=== PATIENT | female | born 1990 | race American Indian/Alaskan Native ===

== ENCOUNTER 2017-01-13 18:22 | Emergency (ER) | payer MEDICAID ==
[2017-01-13 18:33] VITALS: BP 115/65; PULSE 102; RESP 18; TEMP 98; O2SAT 98
--- NOTE | 2017-01-13 18:56 | ED PDOC ---
HPI: Abdomen Time Seen by Provider: 01/13/17 18:39 Chief Complaint (Nursing): Abdominal Pain Chief Complaint (Provider): Abdominal pain History Per: Patient Additional Complaint(s): Patient is 26 yo female, PMH of HIV and Bipolar disorder, presents to ED with complaints of having increasing RLQ pain over 4 days. Denies N/V/D. No fever or chills. Normal BM's. Past Medical History Reviewed: Nursing Documentation, Vital Signs Vital Signs: Last Vital Signs Temp 98 F 01/13/17 18:30 Pulse 102 H 01/13/17 18:30 Resp 18 01/13/17 18:30 BP 115/65 01/13/17 18:30 Pulse Ox 98 01/13/17 18:30 - Medical History PMH: Asthma, Bipolar Disorder, Depression, HIV - Surgical History Surgical History: No Surg Hx - Family History Family History: States: Unknown Family Hx - Living Arrangements Living Arrangements: With Family - Social History Current smoker - smoking cessation education provided: No - Home Medications Home Medications: Ambulatory Orders Medication Instructions Recorded Sulfamethoxazole/Trimethopri 2 tab PO BID #28 tab 10/05/14 [Bactrim Ds 800 mg-160 mg] Valacyclovir Hydrochloride 1 gm PO TID #21 tab 02/08/15 [Valtrex] oxyCODONE/Acetaminophen [Percocet 1 ea PO Q6 PRN #30 tab 02/19/15 5/325 mg Tab] Emtricita/rilpivir/tenofovir 1 tab PO DAILY 03/16/15 [Complera 200 MG-25 MG-300 MG] Fluconazole [Diflucan] 150 mg PO ONCE #1 tab 09/13/15 Nystatin 60 gm TP DAILY #60 gm 09/13/15 Albuterol HFA [Ventolin HFA 90 2 puff IH Q4 PRN #1 inh 10/04/15 mcg/actuation (8 g)] Prednisone 60 mg PO DAILY 4 Days 10/04/15 traMADol [Ultram] 50 mg PO Q6H PRN #15 tab 10/25/15 - Allergies Allergies/Adverse Reactions: Allergies Allergy/AdvReac Type Severity Reaction Status Date / Time chocolate flavor Allergy ANAPHYLAXIS Verified 10/25/15 10:46 ibuprofen Allergy VOMITING Verified 10/25/15 10:46 Review of Systems ROS Statement: Except As Marked, All Systems Reviewed And Found Negative Gastrointestinal: Positive for: Abdominal Pain Physical Exam - Reviewed Nursing Documentation Reviewed: Yes Vital Signs Reviewed: Yes - Physical Exam Appears: Positive for: Well, Non-toxic, No Acute Distress Head Exam: Positive for: ATRAUMATIC, NORMAL INSPECTION, NORMOCEPHALIC Skin: Positive for: Normal Color, Warm, DRY Eye Exam: Positive for: EOMI, Normal appearance, PERRL ENT: Positive for: Normal ENT Inspection Neck: Positive for: Normal, Painless ROM Cardiovascular/Chest: Positive for: Regular Rate, Rhythm Respiratory: Positive for: CNT, Normal Breath Sounds Gastrointestinal/Abdominal: Positive for: Bowel Sounds, Soft, Tenderness (RLQ tenderness). Negative for: Distended, Guarding Back: Positive for: Normal Inspection Extremity: Positive for: Normal ROM Neurologic/Psych: Positive for: Alert, Oriented - ECG O2 Sat by Pulse Oximetry: 98 Medical Decision Making Medical Decision Making: IV access established and treatment initiated with IVF, Toradol Case endorsed to ALAN Hoang at 20:00 pending diagnostic review and re-eval Disposition - Clinical Impression Clinical Impression: Abdominal pain - Patient ED Disposition Is Patient to be Admitted: [facility] - Disposition Disposition: [facility]) Disposition Time: 20:00 Condition: STABLE - POA Present On Arrival: None
[2017-01-13] MEDS ORDERED: Iohexol 240 (50 ml) PO ONE (19:00)
[2017-01-13 19:40] LABS: SQUAMOUS EPITHIAL 1 /hpf (0-5); URINE BACTERIA RARE (<OCC); URINE BILIRUBIN NEGATIVE (NEGATIVE); URINE BLOOD NEGATIVE (NEGATIVE); URINE CLARITY SLIGHTY-CLOUDY (Clear); URINE COLOR AMBER (YELLOW); URINE GLUCOSE (UA) NEG (Normal); URINE LEUKOCYTE ESTERASE MOD Leu/uL (Negative); URINE NITRATE NEGATIVE (NEGATIVE); URINE PROTEIN 30 mg/dL (NEGATIVE); URINE UROBILINOGEN 0.2-1.0 mg/dL (0.2-1.0)
[2017-01-13 19:43] LABS: ALB/GLOB RATIO 0.9 (1.0-2.1); ALBUMIN 4.2 g/dL (3.5-5.0); ALT/SGPT 41 U/L (9-52); AMYLASE 64 U/L (30-110); AST/SGOT 29 U/L (14-36); BLOOD UREA NITROGEN 7 mg/dl (7-17); CALCIUM 9.5 mg/dL (8.4-10.2); GFR AFRICAN-AMERICAN > 60; GFR NON-AFRICAN AMERICAN > 60; LIPASE 41 U/L (23-300)
[2017-01-13 19:44] LABS: BASO % 0.5 % (0.0-2.0); EOS # 0.1 K/uL (0.0-0.7); EOS % 1.1 % (0.0-4.0); HEMOGLOBIN 12.8 g/dL (12.0-16.0); LYMPH # 2.8 K/uL (1.0-4.3); LYMPH % 41.2 % (20.0-40.0); MEAN CELL VOLUME 82.1 fl (81.0-99.0); MEAN CORPUSCULAR HGB CONC 32.9 g/dL (33.0-37.0); MEAN PLATELET VOLUME 8.9 fl (7.2-11.7); MONO # 0.7 K/uL (0.0-0.8); NEUT # 3.2 K/uL (1.8-7.0); NEUT % 46.2 % (50.0-75.0); NRBC % 0.1 % (0.0-0.0); RBC 4.75 Mil/uL (3.80-5.20); RED CELL DISTRIBUTION WIDTH 13.8 % (11.5-14.5); WHITE BLOOD COUNT 6.8 K/uL (4.8-10.8)
[2017-01-13] MEDS ORDERED: Iohexol 240 (50 ml) ONE (19:54)
--- NOTE | 2017-01-13 20:33 | ED PDOC ---
- Laboratory Results Result Diagrams: 01/13/17 19:29 01/13/17 19:29 - ECG O2 Sat by Pulse Oximetry: 98 - Progress ED Course And Treament: Case endorsed to selling underwriter from Jenna PHILLIPS pending CT EXAM: CT Abdomen and Pelvis With Intravenous Contrast CLINICAL HISTORY: 26 years old, female; Pain; Abdominal pain; Localized; Right lower quadrant (rlq ); Additional info: Rlq pain, R/O appy. Sent phy. Doc. With request TECHNIQUE: Axial computed tomography images of the abdomen and pelvis with intravenous contrast. This CT exam was performed using one or more of the following dose reduction techniques : automated exposure control, adjustment of the mA and/or kV according to patient size, and/ or use of iterative reconstruction technique. Coronal and sagittal reformatted images were created and reviewed. CONTRAST: 100 mL of [id number] administered intravenously. COMPARISON: No relevant prior studies available. FINDINGS: Lower thorax: No acute findings. ABDOMEN: Liver: Unremarkable. No mass. Gallbladder and bile ducts: No calcified stones. No ductal dilation. Pancreas: No ductal dilation. No mass. Spleen: No splenomegaly. Adrenals: No mass. Kidneys and ureters: No mass. No hydronephrosis. Stomach and bowel: Segmental areas of underdistention of LEFT colon. No definite mural thickening. No obstruction. Appendix: Normal caliber. No inflammation. PELVIS: Bladder: Unremarkable. Reproductive: Several small ovarian follicles/cysts. ABDOMEN and PELVIS: Intraperitoneal space: Trace free fluid within pelvis. No free air. Bones/joints: No acute fracture. Soft tissues: Unremarkable. Vasculature: Unremarkable. No aneurysm. Lymph nodes: Several subcentimeter short axis lymph nodes within aortocaval, paraaortic, iliac regions. IMPRESSION: 1. No definite CT evidence of appendicitis. 2. Several small ovarian follicles/cysts. Consider ultrasound. 3. Incidental/non-acute findings are described above. Patient educated on findings, states she does not wish to stay for ultrasound; states she has Chief Of Production she will follow up with. Rx Macrobid provided for UTI. Return to ED for worsening/concerning symptoms. Disposition - Clinical Impression Clinical Impression: UTI (urinary tract infection), Ovarian cyst, Abdominal pain - POA Present On Arrival: None - Disposition Disposition: Routine/Home Disposition Time: 23:45 Condition: IMPROVED Additional Instructions: Follow up with Chief Of Production in 2-3 days. Take medication as directed. Take Tylenol as directed, as needed for pain. Return to ED for worsening/concerning symptoms. Prescriptions: Nitrofurantoin Macrocrystals [Macrobid] 100 mg PO BID #14 cap Instructions: Ovarian Cyst (ED), Urinary Tract Infection in Women (ED)
[2017-01-13] MEDS ORDERED: Sodium Chloride 0.9% 50 ML IV ONE (22:34)
[2017-01-13] MEDS ORDERED: Iohexol 300 100 ML IJ ONE (22:34)
--- NOTE | 2017-01-13 23:14 | CT ---
EXAM: CT Abdomen and Pelvis With Intravenous Contrast CLINICAL HISTORY: 26 years old, female; Pain; Abdominal pain; Localized; Right lower quadrant (rlq); Additional info: Rlq pain, R/O appy. Sent phy. Doc. With request TECHNIQUE: Axial computed tomography images of the abdomen and pelvis with intravenous contrast. This CT exam was performed using one or more of the following dose reduction techniques: automated exposure control, adjustment of the mA and/or kV according to patient size, and/or use of iterative reconstruction technique. Coronal and sagittal reformatted images were created and reviewed. CONTRAST: 100 mL of [id number] administered intravenously. COMPARISON: No relevant prior studies available. FINDINGS: Lower thorax: No acute findings. ABDOMEN: Liver: Unremarkable. No mass. Gallbladder and bile ducts: No calcified stones. No ductal dilation. Pancreas: No ductal dilation. No mass. Spleen: No splenomegaly. Adrenals: No mass. Kidneys and ureters: No mass. No hydronephrosis. Stomach and bowel: Segmental areas of underdistention of LEFT colon. No definite mural thickening. No obstruction. Appendix: Normal caliber. No inflammation. PELVIS: Bladder: Unremarkable. Reproductive: Several small ovarian follicles/cysts. ABDOMEN and PELVIS: Intraperitoneal space: Trace free fluid within pelvis. No free air. Bones/joints: No acute fracture. Soft tissues: Unremarkable. Vasculature: Unremarkable. No aneurysm. Lymph nodes: Several subcentimeter short axis lymph nodes within aortocaval, paraaortic, iliac regions. IMPRESSION: 1. No definite CT evidence of appendicitis. 2. Several small ovarian follicles/cysts. Consider ultrasound. 3. Incidental/non-acute findings are described above.
== END 2017-01-13 23:55 | disposition home or self-care (01) ==
LOC: H.ER 18:22
DX: N39.0 Urinary tract infection, site not specified (principal); N83.209 Unspecified ovarian cyst, unspecified side; B20 Human immunodeficiency virus [HIV] disease; F31.9 Bipolar disorder, unspecified

== ENCOUNTER 2017-03-10 08:20 | Emergency (ER) | payer MEDICAID ==
[2017-03-10 08:29] VITALS: BP 126/70; PULSE 75
[2017-03-10 08:30] VITALS: BMI 42.5
[2017-03-10 08:56] VITALS: RESP 18; TEMP 97; O2SAT 98
--- NOTE | 2017-03-10 09:30 | ED PDOC ---
Upper Extremity Pain/Injury Time Seen by Provider: 03/10/17 08:27 Chief Complaint (Provider): Skin infection History Per: Patient History/Exam Limitations: no limitations Onset/Duration Of Symptoms: Days (yesterday) Current Symptoms Are (Timing): Still Present Additional Complaint(s): Pt. states she had a small pimple on her right forearm so she popped yesterday. Today she woke up with redness and a bigger pimple on the forearm. Painful so she came to the ED. Has itchiness as well. No weakness, headaches, fever, chills, numbness, tingles. Able to move arm and forearm with no issues. Past Medical History Reviewed: Nursing Documentation, Vital Signs Vital Signs: Last Vital Signs Temp 97.0 F L 03/10/17 08:52 Pulse 75 03/10/17 08:52 Resp 18 03/10/17 08:52 BP 126/70 03/10/17 08:52 Pulse Ox 98 03/10/17 08:52 - Medical History PMH: Asthma, Bipolar Disorder, Depression, HIV Denies: Chronic Kidney Disease - Surgical History Surgical History: No Surg Hx - Family History Family History: States: Unknown Family Hx - Social History Alcohol: None Drugs: Denies - Immunization History Hx Tetanus Toxoid Vaccination: No Hx Influenza Vaccination: Yes Hx Pneumococcal Vaccination: No - Home Medications Home Medications: Ambulatory Orders Medication Instructions Recorded Sulfamethoxazole/Trimethopri 2 tab PO BID #28 tab 10/05/14 [Bactrim Ds 800 mg-160 mg] Valacyclovir Hydrochloride 1 gm PO TID #21 tab 02/08/15 [Valtrex] oxyCODONE/Acetaminophen [Percocet 1 ea PO Q6 PRN #30 tab 02/19/15 5/325 mg Tab] Emtricita/rilpivir/tenofovir 1 tab PO DAILY 03/16/15 [Complera 200 MG-25 MG-300 MG] Fluconazole [Diflucan] 150 mg PO ONCE #1 tab 09/13/15 Nystatin 60 gm TP DAILY #60 gm 09/13/15 Albuterol HFA [Ventolin HFA 90 2 puff IH Q4 PRN #1 inh 10/04/15 mcg/actuation (8 g)] Prednisone 60 mg PO DAILY 4 Days 10/04/15 traMADol [Ultram] 50 mg PO Q6H PRN #15 tab 10/25/15 Albuterol HFA [Ventolin HFA 90 1 puff IH Q4 #1 puff 10/05/16 mcg/actuation (8 g)] Azithromycin [Zithromax] 250 mg PO DAILY #4 tab 10/05/16 Benzonatate [Tessalon Perles] 100 mg PO TID #30 sgl 10/05/16 Amoxicillin/Clavulanate [Augmentin 1 tab PO BID #14 tab 10/28/16 875 MG-125 MG] Cetirizine HCl [Zyrtec] 10 mg PO DAILY #20 capsule 10/28/16 Mometasone Furoate [Nasonex] 2 spray NS DAILY #1 bottle 10/28/16 Nitrofurantoin Macrocrystals 100 mg PO BID #14 cap 01/13/17 [Macrobid] Clindamycin [Cleocin] 300 mg PO QID 7 Days 03/10/17 Ibuprofen [Motrin] 600 mg PO TID 7 Days 03/10/17 - Allergies Allergies/Adverse Reactions: Allergies Allergy/AdvReac Type Severity Reaction Status Date / Time chocolate flavor Allergy ANAPHYLAXIS Verified 10/25/15 10:46 ibuprofen Allergy VOMITING Verified 10/25/15 10:46 chocolate Allergy RASH Uncoded 08/13/16 12:00 Review of Systems Constitutional: Negative for: Fever, Weakness Cardiovascular: Negative for: Chest Pain, Light Headedness Respiratory: Negative for: Shortness of Breath Gastrointestinal: Negative for: Nausea, Vomiting Musculoskeletal: Positive for: Arm Pain Skin: Positive for: Rash Neurological: Negative for: Weakness Physical Exam - Reviewed Nursing Documentation Reviewed: Yes Vital Signs Reviewed: Yes - Physical Exam Appears: Positive for: Non-toxic, No Acute Distress Head Exam: Positive for: ATRAUMATIC, NORMAL INSPECTION, NORMOCEPHALIC Skin: Positive for: Rash (Tender R forearm with 6cm diameter erythema with central purulent drainage open and draining; no blanching; induration present) Eye Exam: Positive for: EOMI, Normal appearance, PERRL ENT: Positive for: Normal ENT Inspection Neck: Positive for: Normal, Painless ROM Cardiovascular/Chest: Positive for: Regular Rate, Rhythm Respiratory: Positive for: CNT, Normal Breath Sounds Pulses-Radial (R): 2+ Back: Positive for: Normal Inspection Extremity: Positive for: Normal ROM, Tenderness (R forearm). Negative for: Pedal Edema Neurologic/Psych: Positive for: Alert, Oriented - ECG O2 Sat by Pulse Oximetry: 98 Pulse Ox Interpretation: Normal - Progress ED Course And Treament: 938: Stable. AAOx3. Will dc with antibiotics. Draining already. Area marked and pt. will return if erythema goes beyond marked lines. Disposition - Clinical Impression Clinical Impression: Abscess, Cellulitis - Patient ED Disposition Is Patient to be Admitted: No Counseled Patient/Family Regarding: Diagnosis, Need For Followup, Rx Given - Disposition Referrals: [facility] [Outside] - 03/11/17 Disposition: Routine/Home Disposition Time: 09:41 Condition: STABLE Additional Instructions: Return if not better in 3 days. If redness spreads beyond the marked lines, come back right away. Prescriptions: Clindamycin [Cleocin] 300 mg PO QID 7 Days Ibuprofen [Motrin] 600 mg PO TID 7 Days Instructions: Cellulitis (ED), Abscess (ED) Forms: [employer] (Portuguese)
== END 2017-03-10 10:03 | disposition home or self-care (01) ==
LOC: H.ER 08:20 → SUPCPDRO 08:20 → H.ER 10:03
DX: L03.113 Cellulitis of right upper limb (principal)

== ENCOUNTER 2017-03-19 16:22 | Emergency (ER) | payer MEDICAID ==
[2017-03-19 16:22] VITALS: BMI 42.5
[2017-03-19 17:04] VITALS: BP 135/77; PULSE 74; RESP 16; TEMP 98.8; O2SAT 99
--- NOTE | 2017-03-19 17:42 | ED PDOC ---
HPI: Wound Care - HPI Time Seen by Provider: 03/19/17 16:51 Chief Complaint (Nursing): Wound Check Chief Complaint (Provider): Wound Check History Per: Patient Exam Limitations: no limitations Location Of Injury: Right: Arm (forearm) Additional Complaint(s): Viraj Jauregui is a 27 year old female that presents to the ED for a wound check after she had an I&D for a wound on her right forearm last week. Patient denies any complaints. Past Medical History Reviewed: Historical Data, Nursing Documentation, Vital Signs Vital Signs: Last Vital Signs Temp 98.8 F 03/19/17 17:02 Pulse 74 03/19/17 17:02 Resp 16 03/19/17 17:02 BP 135/77 03/19/17 17:02 Pulse Ox 99 03/19/17 17:02 - Medical History PMH: Asthma, Bipolar Disorder, Depression, HIV Denies: Chronic Kidney Disease - Family History Family History: States: Unknown Family Hx - Immunization History Hx Tetanus Toxoid Vaccination: No Hx Influenza Vaccination: Yes Hx Pneumococcal Vaccination: No - Home Medications Home Medications: Ambulatory Orders Medication Instructions Recorded Sulfamethoxazole/Trimethopri 2 tab PO BID #28 tab 10/05/14 [Bactrim Ds 800 mg-160 mg] Valacyclovir Hydrochloride 1 gm PO TID #21 tab 02/08/15 [Valtrex] oxyCODONE/Acetaminophen [Percocet 1 ea PO Q6 PRN #30 tab 02/19/15 5/325 mg Tab] Emtricita/rilpivir/tenofovir 1 tab PO DAILY 03/16/15 [Complera 200 MG-25 MG-300 MG] Fluconazole [Diflucan] 150 mg PO ONCE #1 tab 09/13/15 Nystatin 60 gm TP DAILY #60 gm 09/13/15 Albuterol HFA [Ventolin HFA 90 2 puff IH Q4 PRN #1 inh 10/04/15 mcg/actuation (8 g)] Prednisone 60 mg PO DAILY 4 Days tablet 10/04/15 traMADol [Ultram] 50 mg PO Q6H PRN #15 tab 10/25/15 Albuterol HFA [Ventolin HFA 90 1 puff IH Q4 #1 puff 10/05/16 mcg/actuation (8 g)] Azithromycin [Zithromax] 250 mg PO DAILY #4 tab 10/05/16 Benzonatate [Tessalon Perles] 100 mg PO TID #30 sgl 10/05/16 Amoxicillin/Clavulanate [Augmentin 1 tab PO BID #14 tab 10/28/16 875 MG-125 MG] Cetirizine HCl [Zyrtec] 10 mg PO DAILY #20 capsule 10/28/16 Mometasone Furoate [Nasonex] 2 spray NS DAILY #1 bottle 10/28/16 Nitrofurantoin Macrocrystals 100 mg PO BID #14 cap 01/13/17 [Macrobid] Clindamycin [Cleocin] 300 mg PO QID 7 Days cap 03/10/17 Ibuprofen [Motrin] 600 mg PO TID 7 Days tab 03/10/17 - Allergies Allergies/Adverse Reactions: Allergies Allergy/AdvReac Type Severity Reaction Status Date / Time chocolate flavor Allergy ANAPHYLAXIS Verified 10/25/15 10:46 ibuprofen Allergy VOMITING Verified 10/25/15 10:46 chocolate Allergy RASH Uncoded 08/13/16 12:00 Review of Systems Musculoskeletal: Positive for: Other (wound check on right forearm) Physical Exam - Reviewed Nursing Documentation Reviewed: Yes Vital Signs Reviewed: Yes - Physical Exam Appears: Positive for: Non-toxic, No Acute Distress Head Exam: Positive for: ATRAUMATIC, NORMOCEPHALIC Skin: Positive for: Normal Color, Warm Eye Exam: Positive for: Normal appearance, EOMI, PERRL Pulses-Radial (L): 2+ Pulses-Radial (R): 2+ Extremity: Positive for: Normal ROM, Other (Wound on right forearm is healing well, no surrounding edema or erythema.). Negative for: Tenderness, Swelling Neurologic/Psych: Positive for: Alert, Oriented. Negative for: Motor/Sensory Deficits - ECG O2 Sat by Pulse Oximetry: 99 (RA) Pulse Ox Interpretation: Normal Medical Decision Making Medical Decision Making: Impression: Wound Check Plan: * Wound on right forearm is healing well. Advised patient to use warm compresses on area more frequently, and continue using antibiotics. Patient offers no complaints and is stable for discharge home. Scribe Attestation: Documented by Twyla Ford, acting as a scribe for Gail Peterson PA-C. Provider Scribe Attestation: All medical record entries made by the Scribe were at my direction and personally dictated by me. I have reviewed the chart and agree that the record accurately reflects my personal performance of the history, physical exam, medical decision making, and the department course for this patient. I have also personally directed, reviewed, and agree with the discharge instructions and disposition. Disposition - Clinical Impression Clinical Impression: Encounter for wound re-check - Patient ED Disposition Is Patient to be Admitted: No - Disposition Disposition: Routine/Home Disposition Time: 17:40 Condition: GOOD Additional Instructions: Continue antibiotics and warm compresses\. Forms: [employer] (Danish), [facility] ED School/Work Excuse
--- NOTE | 2017-03-19 17:45 | ED PDOC ---
HPI: Wound Care - HPI Time Seen by Provider: 03/19/17 16:51 Chief Complaint (Nursing): Wound Check Past Medical History Vital Signs: Last Vital Signs Temp 98.8 F 03/19/17 17:02 Pulse 74 03/19/17 17:02 Resp 16 03/19/17 17:02 BP 135/77 03/19/17 17:02 Pulse Ox 99 03/19/17 17:02 - Medical History PMH: Asthma, Bipolar Disorder, Depression, HIV Denies: Chronic Kidney Disease - Family History Family History: States: Unknown Family Hx - Immunization History Hx Tetanus Toxoid Vaccination: No Hx Influenza Vaccination: Yes Hx Pneumococcal Vaccination: No - Home Medications Home Medications: Ambulatory Orders Medication Instructions Recorded Sulfamethoxazole/Trimethopri 2 tab PO BID #28 tab 10/05/14 [Bactrim Ds 800 mg-160 mg] Valacyclovir Hydrochloride 1 gm PO TID #21 tab 02/08/15 [Valtrex] oxyCODONE/Acetaminophen [Percocet 1 ea PO Q6 PRN #30 tab 02/19/15 5/325 mg Tab] Emtricita/rilpivir/tenofovir 1 tab PO DAILY 03/16/15 [Complera 200 MG-25 MG-300 MG] Fluconazole [Diflucan] 150 mg PO ONCE #1 tab 09/13/15 Nystatin 60 gm TP DAILY #60 gm 09/13/15 Albuterol HFA [Ventolin HFA 90 2 puff IH Q4 PRN #1 inh 10/04/15 mcg/actuation (8 g)] Prednisone 60 mg PO DAILY 4 Days tablet 10/04/15 traMADol [Ultram] 50 mg PO Q6H PRN #15 tab 10/25/15 Albuterol HFA [Ventolin HFA 90 1 puff IH Q4 #1 puff 10/05/16 mcg/actuation (8 g)] Azithromycin [Zithromax] 250 mg PO DAILY #4 tab 10/05/16 Benzonatate [Tessalon Perles] 100 mg PO TID #30 sgl 10/05/16 Amoxicillin/Clavulanate [Augmentin 1 tab PO BID #14 tab 10/28/16 875 MG-125 MG] Cetirizine HCl [Zyrtec] 10 mg PO DAILY #20 capsule 10/28/16 Mometasone Furoate [Nasonex] 2 spray NS DAILY #1 bottle 10/28/16 Nitrofurantoin Macrocrystals 100 mg PO BID #14 cap 01/13/17 [Macrobid] Clindamycin [Cleocin] 300 mg PO QID 7 Days cap 03/10/17 Ibuprofen [Motrin] 600 mg PO TID 7 Days tab 03/10/17 - Allergies Allergies/Adverse Reactions: Allergies Allergy/AdvReac Type Severity Reaction Status Date / Time chocolate flavor Allergy ANAPHYLAXIS Verified 10/25/15 10:46 ibuprofen Allergy VOMITING Verified 10/25/15 10:46 chocolate Allergy RASH Uncoded 08/13/16 12:00 - ECG O2 Sat by Pulse Oximetry: 99 Disposition - Clinical Impression Clinical Impression: Encounter for wound re-check - Patient ED Disposition Is Patient to be Admitted: No Counseled Patient/Family Regarding: Diagnosis, Need For Followup - Disposition Disposition: Routine/Home Disposition Time: 17:37 Condition: GOOD Additional Instructions: Continue antibiotics and warm compresses\. Forms: [employer] (Yakut), [facility] ED School/Work Excuse
== END 2017-03-19 18:00 | disposition home or self-care (01) ==
LOC: H.ER 16:22
DX: Z48.00 Encounter for change or removal of nonsurgical wound dressing (principal); F31.9 Bipolar disorder, unspecified

== ENCOUNTER 2017-05-30 13:07 | Emergency (ER) | payer MEDICAID ==
[2017-05-30 13:07] VITALS: BMI 42.5
[2017-05-30 13:25] VITALS: BP 143/77; PULSE 90; RESP 16; TEMP 97; O2SAT 99
--- NOTE | 2017-05-30 13:42 | ED PDOC ---
HPI: CCC, URI, Sore Throat Time Seen by Provider: 05/30/17 13:27 Chief Complaint (Nursing): Cough, Cold, Congestion Chief Complaint (Provider): Productive cough History Per: Patient History/Exam Limitations: no limitations Have you had recent travel within the past 21 days to any of the following countries: [place], [place], [place] or [place]?: No Onset/Duration Of Symptoms: Days (x 5 days) Current Symptoms Are (Timing): Still Present Associated Symptoms: Sputum. denies: Fever Additional Complaint(s): Patient is a 27 y/o female who presents to the ED complaining of cough productive of green/yellow sputum x 5 days. She reports her mother had the same symptoms and was diagnosed with Bronchitis. Patient states she is HIV positive, but her CD4 and viral load are within normal limits as of last week. She denies any hemoptysis, chest pain, shortness of breath, fever, or recent travel. 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, right side neck, left side mouth - Family History Family History: States: Unknown Family Hx - Social History Current smoker - smoking cessation education provided: Yes (Light smoker < 10 cigarettes daily) Alcohol: None Drugs: Cannabis (daily) - Immunization History Hx Tetanus Toxoid Vaccination: No Hx Influenza Vaccination: Yes Hx Pneumococcal Vaccination: No - Home Medications Home Medications: Ambulatory Orders Medication Instructions Recorded Sulfamethoxazole/Trimethopri 2 tab PO BID #28 tab 10/05/14 [Bactrim Ds 800 mg-160 mg] Valacyclovir Hydrochloride 1 gm PO TID #21 tab 02/08/15 [Valtrex] oxyCODONE/Acetaminophen [Percocet 1 ea PO Q6 PRN #30 tab 02/19/15 5/325 mg Tab] Emtricita/rilpivir/tenofovir 1 tab PO DAILY 03/16/15 [Complera 200 MG-25 MG-300 MG] Fluconazole [Diflucan] 150 mg PO ONCE #1 tab 09/13/15 Nystatin 60 gm TP DAILY #60 gm 09/13/15 Albuterol HFA [Ventolin HFA 90 2 puff IH Q4 PRN #1 inh 10/04/15 mcg/actuation (8 g)] Prednisone 60 mg PO DAILY 4 Days tablet 10/04/15 traMADol [Ultram] 50 mg PO Q6H PRN #15 tab 10/25/15 Albuterol HFA [Ventolin HFA 90 1 puff IH Q4 #1 puff 10/05/16 mcg/actuation (8 g)] Azithromycin [Zithromax] 250 mg PO DAILY #4 tab 10/05/16 Benzonatate [Tessalon Perles] 100 mg PO TID #30 sgl 10/05/16 Amoxicillin/Clavulanate [Augmentin 1 tab PO BID #14 tab 10/28/16 875 MG-125 MG] Cetirizine HCl [Zyrtec] 10 mg PO DAILY #20 capsule 10/28/16 Mometasone Furoate [Nasonex] 2 spray NS DAILY #1 bottle 10/28/16 Nitrofurantoin Macrocrystals 100 mg PO BID #14 cap 01/13/17 [Macrobid] Clindamycin [Cleocin] 300 mg PO QID 7 Days cap 03/10/17 Ibuprofen [Motrin] 600 mg PO TID 7 Days tab 03/10/17 Albuterol HFA [Ventolin HFA 90 2 puff IH [id number] PRN #90 puff 05/30/17 mcg/actuation (8 g)] Azithromycin [Zithromax] 250 mg PO DAILY #6 tab 05/30/17 Promethazine DM [Phenergan DM 5 - 10 ml PO Q8 PRN #120 ml 05/30/17 Syrup] - Allergies Allergies/Adverse Reactions: Allergies Allergy/AdvReac Type Severity Reaction Status Date / Time chocolate flavor Allergy ANAPHYLAXIS Verified 10/25/15 10:46 ibuprofen Allergy VOMITING Verified 10/25/15 10:46 chocolate Allergy RASH Uncoded 08/13/16 12:00 Review of Systems ROS Statement: Except As Marked, All Systems Reviewed And Found Negative Constitutional: Negative for: Fever Cardiovascular: Negative for: Chest Pain Respiratory: Positive for: Cough, Sputum. Negative for: Shortness of Breath, Hemoptysis Physical Exam - Reviewed Nursing Documentation Reviewed: Yes Vital Signs Reviewed: Yes - Physical Exam Appears: Positive for: Well, No Acute Distress Head Exam: Positive for: ATRAUMATIC, NORMOCEPHALIC Eye Exam: Positive for: Normal appearance, EOMI, PERRL ENT: Positive for: Normal ENT Inspection Cardiovascular/Chest: Positive for: Regular Rate, Rhythm. Negative for: Murmur Respiratory: Positive for: Normal Breath Sounds. Negative for: Respiratory Distress Neurologic/Psych: Positive for: Alert, Oriented (x3). Negative for: Motor/ Sensory Deficits - ECG O2 Sat by Pulse Oximetry: 99 (RA) Pulse Ox Interpretation: Normal - Radiology X-Ray: Interpreted by Me (CXR) X-Ray Interpretation: No Acute Disease Medical Decision Making Medical Decision Making: Time: 13:32 Initial Plan: --Chest X-Ray (PA/LAT) Scribe Attestation: Documented by Isha Martinez, acting as a scribe for Mihir Pack PA-C Provider Scribe Attestation: All medical record entries made by the Scribe were at my direction and personally dictated by me. I have reviewed the chart and agree that the record accurately reflects my personal performance of the history, physical exam, medical decision making, and the department course for this patient. I have also personally directed, reviewed, and agree with the discharge instructions and disposition. Disposition - Clinical Impression Clinical Impression: Acute bronchitis - Patient ED Disposition Is Patient to be Admitted: No - Disposition Referrals: Margarita Campbell [Outside] Disposition: Routine/Home Disposition Time: 13:45 Condition: STABLE Prescriptions: Albuterol HFA [Ventolin HFA 90 mcg/actuation (8 g)] 2 puff IH [id number] PRN #90 puff PRN Reason: Cough Azithromycin [Zithromax] 250 mg PO DAILY #6 tab Promethazine DM [Phenergan DM Syrup] 5 - 10 ml PO Q8 PRN #120 ml PRN Reason: Cough Instructions: Acute Bronchitis (ED) Forms: [employer] ([place]ican)
--- NOTE | 2017-05-30 15:07 | RAD ---
HISTORY: cough COMPARISON: Comparison chest dated 04/20/2013. TECHNIQUE: Chest PA and lateral FINDINGS: LUNGS: No active pulmonary disease. PLEURA: No significant pleural effusion identified. No pneumothorax apparent. CARDIOVASCULAR: Normal. OSSEOUS STRUCTURES: No significant abnormalities. VISUALIZED UPPER ABDOMEN: Normal. OTHER FINDINGS: None. IMPRESSION: No active disease.
== END 2017-05-30 14:15 | disposition home or self-care (01) ==
LOC: H.ER 13:07
DX: J20.9 Acute bronchitis, unspecified (principal); F31.9 Bipolar disorder, unspecified; J45.909 Unspecified asthma, uncomplicated; F17.210 Nicotine dependence, cigarettes, uncomplicated

== ENCOUNTER 2017-06-13 16:27 | Emergency (ER) | payer MEDICAID ==
[2017-06-13 16:27] VITALS: BMI 42.5
[2017-06-13 16:33] VITALS: BP 125/68; PULSE 98; RESP 16; TEMP 98.1; O2SAT 99
--- NOTE | 2017-06-13 18:04 | ED PDOC ---
HPI: Psych/Substance Abuse Time Seen by Provider: 06/13/17 16:53 Chief Complaint (Nursing): Psychiatric Evaluation Chief Complaint (Provider): depression Current Symptoms Are (Timing): Still Present Suicide/Self Injury Attempted (Context): None Associated Symptoms: Depression. denies: Anger, Anxiety, Agitation, Paranoia, Suicidal Thoughts, Suicidal Plan Additional Complaint(s): 27yo F with HIV(+) since in ER with depression because of hr chronic infection and father drug abuse hx . denies SI, HI, hallucinations. state that she only wants someone to speak with. has not f.u with outpt pysch tx was seen at another hospital dx with bipolar d/o Past Medical History Reviewed: Historical Data, Nursing Documentation, Vital Signs Vital Signs: Last Vital Signs Temp 98.1 F 06/13/17 16:31 Pulse 98 H 06/13/17 16:31 Resp 16 06/13/17 16:31 BP 125/68 06/13/17 16:31 Pulse Ox 99 06/13/17 16:31 - Medical History PMH: Asthma, Bipolar Disorder, Depression, HIV Denies: Chronic Kidney Disease - Family History Family History: States: Unknown Family Hx - Immunization History Hx Tetanus Toxoid Vaccination: No Hx Influenza Vaccination: Yes Hx Pneumococcal Vaccination: No - Home Medications Home Medications: Ambulatory Orders Medication Instructions Recorded Sulfamethoxazole/Trimethopri 2 tab PO BID #28 tab 10/05/14 [Bactrim Ds 800 mg-160 mg] Valacyclovir Hydrochloride 1 gm PO TID #21 tab 02/08/15 [Valtrex] oxyCODONE/Acetaminophen [Percocet 1 ea PO Q6 PRN #30 tab 02/19/15 5/325 mg Tab] Emtricita/rilpivir/tenofovir 1 tab PO DAILY 03/16/15 [Complera 200 MG-25 MG-300 MG] Fluconazole [Diflucan] 150 mg PO ONCE #1 tab 09/13/15 Nystatin 60 gm TP DAILY #60 gm 09/13/15 Albuterol HFA [Ventolin HFA 90 2 puff IH Q4 PRN #1 inh 10/04/15 mcg/actuation (8 g)] Prednisone 60 mg PO DAILY 4 Days tablet 10/04/15 traMADol [Ultram] 50 mg PO Q6H PRN #15 tab 10/25/15 Albuterol HFA [Ventolin HFA 90 1 puff IH Q4 #1 puff 10/05/16 mcg/actuation (8 g)] Azithromycin [Zithromax] 250 mg PO DAILY #4 tab 10/05/16 Benzonatate [Tessalon Perles] 100 mg PO TID #30 sgl 10/05/16 Amoxicillin/Clavulanate [Augmentin 1 tab PO BID #14 tab 10/28/16 875 MG-125 MG] Cetirizine HCl [Zyrtec] 10 mg PO DAILY #20 capsule 10/28/16 Mometasone Furoate [Nasonex] 2 spray NS DAILY #1 bottle 10/28/16 Nitrofurantoin Macrocrystals 100 mg PO BID #14 cap 01/13/17 [Macrobid] Clindamycin [Cleocin] 300 mg PO QID 7 Days cap 03/10/17 Ibuprofen [Motrin] 600 mg PO TID 7 Days tab 03/10/17 Albuterol HFA [Ventolin HFA 90 2 puff IH [id number] PRN #90 puff 05/30/17 mcg/actuation (8 g)] Azithromycin [Zithromax] 250 mg PO DAILY #6 tab 05/30/17 Promethazine DM [Phenergan DM 5 - 10 ml PO Q8 PRN #120 ml 05/30/17 Syrup] - Allergies Allergies/Adverse Reactions: Allergies Allergy/AdvReac Type Severity Reaction Status Date / Time chocolate flavor Allergy ANAPHYLAXIS Verified 10/25/15 10:46 ibuprofen Allergy VOMITING Verified 10/25/15 10:46 chocolate Allergy RASH Uncoded 08/13/16 12:00 Review of Systems ROS Statement: Except As Marked, All Systems Reviewed And Found Negative Psych: Positive for: Depression Physical Exam - Reviewed Nursing Documentation Reviewed: Yes Vital Signs Reviewed: Yes - Physical Exam Appears: Positive for: Well, Non-toxic, No Acute Distress Skin: Positive for: Normal Color, Warm, DRY Cardiovascular/Chest: Positive for: Regular Rate, Rhythm Respiratory: Positive for: CNT, Normal Breath Sounds Neurologic/Psych: Positive for: Alert, Oriented, Mood/Affect (depression tearful ) - ECG O2 Sat by Pulse Oximetry: 99 - Progress ED Course And Treament: crisis eval Medical Decision Making Medical Decision Making: dx: adjustment d/o with depressed mood under Badr, Md stable for dc Disposition - Clinical Impression Clinical Impression: Depression, Adjustment disorder - Patient ED Disposition Is Patient to be Admitted: No Counseled Patient/Family Regarding: Diagnosis, Need For Followup - Disposition Disposition: Routine/Home Disposition Time: 19:00 Condition: STABLE Instructions: Mood Disorders (ED), Depression (ED) Forms: [employer] (Icelandic)
== END 2017-06-13 19:52 | disposition home or self-care (01) ==
LOC: H.ER 16:27
DX: F43.21 Adjustment disorder with depressed mood (principal); F31.9 Bipolar disorder, unspecified; F32.9 Major depressive disorder, single episode, unspecified; J45.909 Unspecified asthma, uncomplicated

== ENCOUNTER 2017-09-07 17:56 | Emergency (ER) | payer MEDICAID ==
[2017-09-07 17:56] VITALS: BMI 42.5
[2017-09-07 18:14] VITALS: BP 135/86; PULSE 91; RESP 16; TEMP 98.6; O2SAT 100
[2017-09-07] MEDS ORDERED: Tmp-Smz 800 mg-160 mg DS Tab PO STA (19:04)
--- NOTE | 2017-09-07 19:09 | ED PDOC ---
HPI: Skin/Bite Injury Time Seen by Provider: 09/07/17 18:16 Chief Complaint (Nursing): Abnormal Skin Integrity Chief Complaint (Provider): Boil History Per: Patient History/Exam Limitations: no limitations Onset/Duration Of Symptoms: Days (x 1) Current Symptoms Are (Timing): Still Present Quality Of Symptoms: Painful Severity: Mild Pain Scale Rating Of: 5 Additional Complaint(s): Viraj is a 27 y/o female with a history of boils who presents to the ED complaining of a boil under her right arm, which she noticed yesterday. She denies fever or chills, reports localized pain, and has not taken any medications for her symptoms. PMD: [facility] Past Medical History Reviewed: Historical Data, Nursing Documentation, Vital Signs Vital Signs: Last Vital Signs Temp 98.6 F 09/07/17 18:11 Pulse 91 H 09/07/17 18:11 Resp 16 09/07/17 18:11 BP 135/86 09/07/17 18:11 Pulse Ox 100 09/07/17 19:12 - Medical History PMH: Asthma, Bipolar Disorder, Depression, HIV (latest count undetectable) Denies: Diabetes, Hepatitis, HTN, Chronic Kidney Disease, Seizures, Sexually Transmitted Disease - Surgical History Other surgeries: tumor removals as a child to arm and neck - Family History Family History: States: Unknown Family Hx - Living Arrangements Living Arrangements: With Family - Immunization History Hx Tetanus Toxoid Vaccination: No Hx Influenza Vaccination: Yes Hx Pneumococcal Vaccination: Yes - Home Medications Home Medications: Ambulatory Orders Medication Instructions Recorded Cephalexin [Keflex] 500 mg PO BID #14 capsule 08/15/17 Sulfamethoxazole/Trimethoprim 1 tab PO BID #14 tab 08/15/17 [Bactrim DS 800 mg-160 mg] Cephalexin [cephalexin] 500 mg PO QID #28 cap 09/07/17 Sulfamethoxazole/Trimethoprim 1 each PO BID #14 tablet 09/07/17 [Bactrim Ds Tablet] - Allergies Allergies/Adverse Reactions: Allergies Allergy/AdvReac Type Severity Reaction Status Date / Time chocolate flavor Allergy ANAPHYLAXIS Verified 10/25/15 10:46 ibuprofen Allergy VOMITING Verified 10/25/15 10:46 chocolate Allergy RASH Uncoded 08/13/16 12:00 Review of Systems ROS Statement: Except As Marked, All Systems Reviewed And Found Negative Constitutional: Negative for: Fever, Chills Cardiovascular: Negative for: Chest Pain Respiratory: Negative for: Cough, Shortness of Breath Musculoskeletal: Positive for: Arm Pain (right) Skin: Positive for: Other (boil under right arm) Physical Exam - Reviewed Nursing Documentation Reviewed: Yes Vital Signs Reviewed: Yes - Physical Exam Appears: Positive for: Well, Non-toxic, No Acute Distress Head Exam: Positive for: ATRAUMATIC, NORMOCEPHALIC Skin: Positive for: Warm, Dry. Negative for: Normal Color (4cm x 4cm induration to right axilla, (+) tenderness, central 2cm x 2cm erythema, no skin break, warmth, or evidence of surrounding cellulitis) Eye Exam: Positive for: EOMI, PERRL Neck: Positive for: Painless ROM, Supple Cardiovascular/Chest: Positive for: Regular Rate, Rhythm. Negative for: Murmur Respiratory: Positive for: Normal Breath Sounds. Negative for: Decreased Breath Sounds, Accessory Muscle Use, Respiratory Distress Gastrointestinal/Abdominal: Positive for: Soft. Negative for: Tenderness, Mass , Distended, Guarding, Rebound Extremity: Positive for: Normal ROM (of bilateral upper extremities at shoulders and elbows) Neurologic/Psych: Positive for: Alert, Oriented (x3), Mood/Affect (appropriate) , Gait (steady in ED) - ECG O2 Sat by Pulse Oximetry: 100 (RA) Pulse Ox Interpretation: Normal Medical Decision Making Medical Decision Making: Time: 19:04 Clinical Impression: Abscess of axilla; consider HS Plan: --Keflex --Bactrim --Tramadol On re-evaluation, patient reports improvement of symptoms. On exam, patient remains AAOx3, in no acute distress. On exam, neck is supple, lungs CTA, cardiac RRR, abdomen is soft and non-tender, neuro exam shows no focal findings. VSS. Arrangements made for discharge. Advised to follow up with primary care physician/clinic in 1-2 days without fail. Advised to take medication as prescribed. Return to the emergency room at any time for any new or worsening symptoms. Warm compresses and OTC Ibuprofen for pain control encouraged. Patient states she fully agrees with and understands discharge instructions. States that she agrees with the plan and disposition. Verbalized and repeated discharge instructions and plan. I have given the patient opportunity to ask any additional questions. Scribe Attestation: Documented by Alejandro Zhu, acting as a scribe for Briana Armijo PA-C Provider Scribe Attestation: All medical record entries made by the Scribe were at my direction and personally dictated by me. I have reviewed the chart and agree that the record accurately reflects my personal performance of the history, physical exam, medical decision making, and the department course for this patient. I have also personally directed, reviewed, and agree with the discharge instructions and disposition. Disposition - Clinical Impression Clinical Impression: Abscess of axilla, right - Patient ED Disposition Is Patient to be Admitted: No Counseled Patient/Family Regarding: Studies Performed, Diagnosis, Need For Followup, Rx Given - Disposition Disposition: Routine/Home Disposition Time: 19:04 Condition: STABLE Additional Instructions: CONTACT PMD FOR DERMATOLOGY REFERRAL. APPLY WARM COMPRESSES FOUR TIMES A DAY. TAKE ANTIBIOTICS UNTIL COMPLETE. Prescriptions: Cephalexin [cephalexin] 500 mg PO QID #28 cap Sulfamethoxazole/Trimethoprim [Bactrim Ds Tablet] 1 each PO BID #14 tablet Instructions: Hidradenitis Suppurativa, Skin Abscess Forms: [employer] (Namibian) Print Language: MACEDONIAN
[2017-09-07] MEDS ORDERED: Tmp-Smz 800 mg-160 mg DS Tab ONE (19:38)
== END 2017-09-07 20:00 | disposition home or self-care (01) ==
LOC: H.ER 17:56
DX: L02.411 Cutaneous abscess of right axilla (principal); F31.9 Bipolar disorder, unspecified; B20 Human immunodeficiency virus [HIV] disease

== ENCOUNTER 2017-09-12 03:21 | Inpatient (IN) | payer MEDICAID ==
[2017-09-12 03:50] VITALS: BMI 41.1
[2017-09-12] MEDS ORDERED: Piperacillin/Tazobact 3.375 GM in Sodium Chloride 0.9% 100 ML IVPB STA (04:28)
[2017-09-12] MEDS ORDERED: Piperacillin/Tazobact 3.375 gm Inj IVPB ONE (04:35)
--- NOTE | 2017-09-12 04:42 | ED PDOC ---
HPI: General Adult Time Seen by Provider: 09/12/17 03:55 Chief Complaint (Nursing): Abnormal Skin Integrity History Per: Patient Additional Complaint(s): Pt. states for the past week she's had a progressively worsening painful mass on the R armpit. She was seen in this ED on 09/07/2017 and dx with abscess and prescribed Keflex and Bactrim DS which she has been taking without relief. NOw she's developed redness around the mass extending into the upper arm. Of note, pt. states she is HIV+ and is compliant with her meds. Her last CD4 and viral load was done last month which were WNL. Denies fever, chest pain. Past Medical History Reviewed: Historical Data, Nursing Documentation, Vital Signs Vital Signs: Last Vital Signs Temp 98.4 F 09/12/17 06:01 Pulse 76 09/12/17 06:01 Resp 15 09/12/17 06:01 BP 123/76 09/12/17 06:01 Pulse Ox 97 09/12/17 06:24 - Medical History PMH: Asthma, Bipolar Disorder, Depression, HIV (latest count undetectable) Denies: Diabetes, Hepatitis, HTN, Chronic Kidney Disease, Seizures, Sexually Transmitted Disease - Family History Family History: States: No Known Family Hx - Immunization History Hx Tetanus Toxoid Vaccination: No Hx Influenza Vaccination: Yes Hx Pneumococcal Vaccination: Yes - Home Medications Home Medications: Ambulatory Orders Medication Instructions Recorded DiphenhydrAMINE [Benadryl] 25 mg PO HS 09/12/17 - Allergies Allergies/Adverse Reactions: Allergies Allergy/AdvReac Type Severity Reaction Status Date / Time chocolate flavor Allergy ANAPHYLAXIS Verified 10/25/15 10:46 ibuprofen Allergy VOMITING Verified 10/25/15 10:46 chocolate Allergy RASH Uncoded 08/13/16 12:00 Review of Systems ROS Statement: Except As Marked, All Systems Reviewed And Found Negative Musculoskeletal: Positive for: Arm Pain Physical Exam - Physical Exam Appears: Positive for: Well, Non-toxic, No Acute Distress Skin: Positive for: Normal Color, Warm. Negative for: Rash Eye Exam: Positive for: Normal appearance Cardiovascular/Chest: Positive for: Regular Rate, Rhythm Respiratory: Positive for: CNT, Normal Breath Sounds Gastrointestinal/Abdominal: Positive for: Normal Exam, Soft. Negative for: Tenderness Extremity: Positive for: Other (R axillar with a 3cm x 3cm erythematous fluctuant mass in the R axilla without drainage with moderate surrounding erythema extending into R upper extremity) - Laboratory Results Result Diagrams: 09/12/17 04:00 09/12/17 04:00 Urine POC: Negative - ECG O2 Sat by Pulse Oximetry: 97 - Progress ED Course And Treament: Labs, CT R upper extremity w/ IV contrast, zosyn IV, vancomycin IV, blood culture x 2, VBG ordered. Case d/w Dr. Gastelum who agrees with care and states pt. requires admission due to failed outpt therapy. Case d/w Dr. Chiang and arrangements made for admission. Morphine 2mg IV, zofran 4mg IV ordered for pain. Case d/w Dr. Wesley, surgery resident, and agrees with care. Still pending CT. Disposition - Clinical Impression Clinical Impression: Abscess, Cellulitis - Patient ED Disposition Is Patient to be Admitted: Yes - Disposition Disposition Time: 05:22 Condition: STABLE
[2017-09-12 05:12] LABS: VENOUS BLOOD GAS BASE EXCESS 1.5 mmol/L (0.0-2.0); VENOUS BLOOD GAS PCO2 49 mmHg (40-60); VENOUS BLOOD GAS PO2 43 mm/Hg (30-55); VENOUS BLOOD PH 7.36 (7.32-7.43)
[2017-09-12 05:17] LABS: BASO % 0.5 % (0.0-2.0); EOS # 0.3 K/uL (0.0-0.7); EOS % 4.8 % (0.0-4.0); HEMOGLOBIN 12.9 g/dL (12.0-16.0); LYMPH # 2.9 K/uL (1.0-4.3); LYMPH % 45.6 % (20.0-40.0); MEAN CELL VOLUME 83.8 fl (81.0-99.0); MEAN CORPUSCULAR HEMOGLOBIN 28.2 pg (27.0-31.0); MEAN CORPUSCULAR HGB CONC 33.6 g/dL (33.0-37.0); MEAN PLATELET VOLUME 9.5 fl (7.2-11.7); MONO # 0.5 K/uL (0.0-0.8); MONO % 8.5 % (0.0-10.0); NEUT # 2.6 K/uL (1.8-7.0); NEUT % 40.6 % (50.0-75.0); NRBC % 0.1 % (0.0-0.0); RBC 4.59 Mil/uL (3.80-5.20); RED CELL DISTRIBUTION WIDTH 13.6 % (11.5-14.5); WHITE BLOOD COUNT 6.5 K/uL (4.8-10.8)
[2017-09-12 05:22] LABS: ALB/GLOB RATIO 0.9 (1.0-2.1); ALBUMIN 3.7 g/dL (3.5-5.0); GFR AFRICAN-AMERICAN > 60; GFR NON-AFRICAN AMERICAN > 60
[2017-09-12 05:48] LABS: ALT/SGPT 39 U/L (9-52); AST/SGOT 41 U/L (14-36); BLOOD UREA NITROGEN 10 mg/dl (7-17)
[2017-09-12 06:23] VITALS: O2SAT 97
[2017-09-12] MEDS ORDERED: Iohexol 300 100 ML IJ ONE (06:37)
[2017-09-12] MEDS ORDERED: Sodium Chloride 0.9% 100 ML ONE (06:38)
--- NOTE | 2017-09-12 07:30 | CP.PCM.CON ---
History of Present Illness - History of Present Illness History of Present Illness: SURGERY CONSULT NOTE FOR DR. AHMADI 27F presents with right axillary pain that began one week ago. She states pain is associated with lump which is tender and warm to touch. Patient states she has had slightly similar symptoms in the other axilla region and groin region. She denies fevers, or chills, or numbness/weakness in ipsilateral arm. 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, right arm cyst removal Social: admits to marijuana use and tobacco use, denies alcohol Allergies: chocolate, ibuprofen Past Patient History - Infectious Disease Hx of Infectious Diseases: None - Past Social History Smoking Status: Light Smoker < 10 Cigarettes Daily - CARDIAC Hx Hypertension: No - PULMONARY Hx Asthma: Yes - NEUROLOGICAL Hx Seizures: No - RENAL Hx Chronic Kidney Disease: No - ENDOCRINE/METABOLIC Hx Endocrine Disorders: No - HEMATOLOGICAL/ONCOLOGICAL Hx Blood Disorders: Yes - GENITOURINARY/GYNECOLOGICAL Hx Sexually Transmitted Disorders: No - PSYCHIATRIC Hx Psychophysiologic Disorder: Yes - SURGICAL HISTORY Hx Surgeries: Yes Other/Comment: tumor removal from right arm & right side neck. - ANESTHESIA Hx Anesthesia: Yes Hx Anesthesia Reactions: No Meds Allergies/Adverse Reactions: Allergies Allergy/AdvReac Type Severity Reaction Status Date / Time chocolate flavor Allergy ANAPHYLAXIS Verified 10/25/15 10:46 ibuprofen Allergy VOMITING Verified 10/25/15 10:46 chocolate Allergy RASH Uncoded 08/13/16 12:00 Physical Exam - Constitutional Appears: Well, Non-toxic, No Acute Distress, Other (Obese) - Head Exam Head Exam: ATRAUMATIC - Eye Exam Eye Exam: EOMI, PERRL - Respiratory Exam Respiratory Exam: Clear to Auscultation Bilateral, NORMAL BREATHING PATTERN - Cardiovascular Exam Cardiovascular Exam: REGULAR RHYTHM, +S1, +S2 - GI/Abdominal Exam GI & Abdominal Exam: Soft. absent: Distended, Firm, Guarding, Rebound, Rigid, Tenderness - Extremities Exam Additional comments: right axilla region is erythematous, tender to palpation, and spontaneously draining abscess skin changes in the left axilla and bilateral groin region - Neurological Exam Neurological exam: Alert, Oriented x3 - Psychiatric Exam Psychiatric exam: Normal Affect, Normal Mood - Skin Skin Exam: Dry, Intact, Normal Color, Warm Results - Vital Signs Recent Vital Signs: Last Vital Signs Temp 98.4 F 09/12/17 06:52 Pulse 76 09/12/17 06:52 Resp 15 09/12/17 06:52 BP 123/76 09/12/17 06:52 Pulse Ox 97 09/12/17 06:31 - Labs Result Diagrams: 09/12/17 04:00 09/12/17 04:00 Labs: Laboratory Results - last 24 hr 09/12/17 09/12/17 09/12/17 04:00 04:00 05:09 WBC 6.5 RBC 4.59 Hgb 12.9 Hct 38.5 MCV 83.8 MCH 28.2 MCHC 33.6 RDW 13.6 Plt Count 198 MPV 9.5 Neut % (Auto) 40.6 L Lymph % (Auto) 45.6 H [place] % (Auto) 8.5 Eos % (Auto) 4.8 H Baso % (Auto) 0.5 Neut # (Auto) 2.6 Lymph # (Auto) 2.9 [place] # (Auto) 0.5 Eos # (Auto) 0.3 Baso # (Auto) 0.0 pO2 43 VBG pH 7.36 VBG pCO2 49 VBG HCO3 25.5 VBG Total CO2 29.2 H VBG O2 Sat (Calc) 83.9 H VBG Base Excess 1.5 VBG Potassium 4.2 Glucose 95 Lactate 1.0 FiO2 21.0 Sodium 143 140.0 Potassium 4.1 Chloride 105 109.0 H Carbon Dioxide 24 Anion Gap 18 BUN 10 Creatinine 0.5 L Est GFR ( Amer) > 60 Est GFR (Non-Af Amer) > 60 Random Glucose 100 Calcium 9.0 Total Bilirubin 0.5 AST 41 H ALT 39 Alkaline Phosphatase 70 Total Protein 7.9 Albumin 3.7 Globulin 4.1 H Albumin/Globulin Ratio 0.9 L Venous Blood Potassium 4.2 Assessment & Plan - Assessment and Plan (Free Text) Assessment: 27F presents with right axilla spontaneously draining abscess and cellulitis Plan: - continue antibiotics - pain control, IVF - Monitor drainage/ dressing changes Further recs discuss with Dr. Rayray Wesley, PGY2
[2017-09-12 08:00] VITALS: RESP 20
--- NOTE | 2017-09-12 08:43 | CT ---
EXAM: CT Right Upper Extremity With Intravenous Contrast, Shoulder EXAM DATE/TIME: 09/12/2017 4:06 AM CLINICAL HISTORY: 27 years old, female; Signs and symptoms; Swelling and other: Pus/abcess; Arm, upper and upper limb and other: Arm pit; Right; Additional info: Attention r axilla to r upper arm TECHNIQUE: Axial computed tomography images of the right shoulder with intravenous contrast. All CT scans at this facility use one or more dose reduction techniques, viz.: automated exposure control; ma/kV adjustment per patient size (including targeted exams where dose is matched to indication; i.e. head); or iterative reconstruction technique. Coronal and sagittal reformatted images were created and reviewed. CONTRAST: 100 mL of [id number] administered intravenously. COMPARISON: No relevant prior studies available. FINDINGS: There is stranding and soft tissue density in the subcutaneous fat of the right axillary region with overlying skin thickening consistent with infectious/inflammatory process/celulitis. There is no walled off drainable fluid collection identified. No abscess. Fat planes are interspersed between the inflammation and vasculature. No myositis identified. Multiple small lymph nodes in the right neck are noted. The osseous structures are normal. IMPRESSION: Cellulitis of the right axillary region.
[2017-09-12] MEDS: Piperacillin/Tazobact 3.375 GM in Sodium Chloride 0.9% 100 ML IVPB SCH ×2 (10:23→15:37)
[2017-09-12 15:38] VITALS: BP 136/91; PULSE 78; TEMP 98.2
--- NOTE | 2017-09-12 16:20 | CP.PCM.PN ---
Subjective - Date & Time of Evaluation Date of Evaluation: 09/12/17 Time of Evaluation: 16:15 - Subjective Subjective: I D NOTE PATIENT SEEN ,HISTORY DISCUSSED c PATIENT HAVE INCREASED DOSE SCHEDULE OF VANCOMYCIN TO Q12H FULL CONSULT DICTATED AWIT CULTURE RESULTS Objective - Vital Signs/Intake and Output Vital Signs (last 24 hours): Temp Pulse Resp BP Pulse Ox 98.2 F 78 20 136/91 H 97 09/12/17 15:37 09/12/17 15:37 09/12/17 15:37 09/12/17 15:37 09/12/17 15:37 - Medications Medications: Current Medications Piperacillin Sod/Tazobactam (Sod 3.375 gm/ Sodium Chloride) 100 mls @ 100 mls/ hr IVPB Q6 KRYSTA PRN Reason: Protocol Last Admin: 09/12/17 15:37 Dose: 100 mls/hr Vancomycin HCl 1 gm/ Sodium (Chloride) 250 mls @ 166.667 mls/hr IVPB Q12 KRYSTA PRN Reason: Protocol Morphine Sulfate (Morphine) 2 mg IVP Q4 PRN PRN Reason: Pain, severe (8-10) Last Admin: 09/12/17 10:23 Dose: 2 mg Ondansetron HCl (Zofran Inj) 4 mg IVP Q6 PRN PRN Reason: Nausea/Vomiting Silver Sulfadiazine (Silvadene 1% 50 Gm) 1 applic TOP BID KRYSTA - Labs Labs: 09/12/17 04:00 09/12/17 04:00
[2017-09-12] MEDS ORDERED: Silver Sulfadiazine 1% CREAM (50 gm) TOP SCH (17:00)
--- NOTE | 2017-09-12 21:06 | CON ---
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 She was seen in the ER on 09/07/2017 and was given a prescription for Keflex and Bactrim, which did not improve it and she noted that it became bigger and spontaneously opened up. The patient said she had some low-grade fever, but no chills. Of note, the patient stated that she has had these axillary abscesses in the past on both sides and also in the inguinal area, she was never told the diagnosis being hidradenitis suppurativa, but explained the disease process to her and what she may be able to do to help herself with recurrences in the future. PAST MEDICAL HISTORY: Includes asthma, bipolar disorder, depression, and she is being treated for her HIV disease in [place]. PHYSICAL EXAMINATION: GENERAL: She is alert, cooperative, oriented to time and place and is a quite pleasant female. HEENT: Within normal limits. NECK: Supple. LUNGS: Clear. HEART: Regular sinus rhythm. ABDOMEN: Soft with positive bowel sounds. No organomegaly. EXTREMITIES: Right axilla, she has a large draining abscess in the area or infected gland in the right axilla. She also has lymphadenopathy in the left axilla. LABORATORY DATA: Cultures apparently were taken in the emergency room and on the floor. I discussed with nursing and was told that the dressing has been changed on multiple occasions today. Cultures are pending, but she has had grown MRSA in the past, the past being February. Her creatinine is 0.5, GFR is greater than 60, and AST 41. CBC; WBC is 6.5, hemoglobin 12.9, polys of 40.6, and lymphs of 45.6%. Upper extremity CT soft tissue density in the subcutaneous fat of the right axillary region with overlying skin thickening consistent with infectious inflammatory process. There was no drainable fluid collection identified, no abscess. Multiple small lymph nodes are noted in the right neck. 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 At present time, I have increased the vancomycin to b.i.d. and continued with the Zosyn, there is a possibility I may change to clindamycin based on MICs obtained from cultures. Kayden Mejía MD PEMA
== END 2017-09-12 20:49 | disposition left against medical advice (07) | DRG 713 ==
LOC: H.ER 03:21 → H.ERHOLD 05:22 → H.MEDSURG1 07:17
PROVIDERS: ADMIT Family Medicine; ATTEND Family Medicine
DX: L03.111 Cellulitis of right axilla (principal); Z21 Asymptomatic human immunodeficiency virus [HIV] infection status; A49.02 Methicillin resistant Staphylococcus aureus infection, unspecified site; L73.2 Hidradenitis suppurativa; F12.90 Cannabis use, unspecified, uncomplicated; J45.909 Unspecified asthma, uncomplicated; F31.9 Bipolar disorder, unspecified; F17.210 Nicotine dependence, cigarettes, uncomplicated

== ENCOUNTER 2017-10-09 02:04 | Emergency (ER) | payer MEDICAID ==
[2017-10-09 02:04] VITALS: BMI 41.1
[2017-10-09 02:23] VITALS: O2SAT 100
[2017-10-09] MEDS ORDERED: Oxycodone/Acetaminophen 5/325 mg Tab ONE (02:32)
[2017-10-09] MEDS ORDERED: Lidocaine 2% Inj (20ml) INFIL ONE (02:32)
[2017-10-09] MEDS ORDERED: Oxycodone/Acetaminophen 5/325 mg Tab PO STA (02:32)
--- NOTE | 2017-10-09 03:33 | ED PDOC ---
HPI: General Adult Time Seen by Provider: 10/09/17 02:19 Chief Complaint (Nursing): Abnormal Skin Integrity History Per: Patient History/Exam Limitations: no limitations Onset/Duration Of Symptoms: Days (2) Additional Complaint(s): Hx of HIV (VL undetectable) p/w R armpit abscess, states she had cellulitis of the area 2 weeks ago and was admitted but signed out AMA, states the redness/ swelling went away but swelling came back 2 days ago. No fevers/chills/nausea/ vomiting. Past Medical History Reviewed: Historical Data, Nursing Documentation, Vital Signs Vital Signs: Last Vital Signs Temp 98.9 F 10/09/17 02:12 Pulse 85 10/09/17 02:12 Resp 17 10/09/17 02:12 BP 125/83 10/09/17 02:12 Pulse Ox 100 10/09/17 02:12 - Medical History PMH: Asthma, Bipolar Disorder, Depression, HIV Denies: Diabetes, Hepatitis, HTN, Chronic Kidney Disease, Seizures, Sexually Transmitted Disease - Family History Family History: States: Unknown Family Hx - Immunization History Hx Tetanus Toxoid Vaccination: No Hx Influenza Vaccination: Yes Hx Pneumococcal Vaccination: Yes - Home Medications Home Medications: Ambulatory Orders Medication Instructions Recorded DiphenhydrAMINE [Benadryl] 25 mg PO HS 09/12/17 Clindamycin [Cleocin] 300 mg PO TID 10 Days cap 10/09/17 traMADol [Ultram] 50 mg PO STAT #5 tab 10/09/17 - Allergies Allergies/Adverse Reactions: Allergies Allergy/AdvReac Type Severity Reaction Status Date / Time chocolate flavor Allergy ANAPHYLAXIS Verified 10/25/15 10:46 ibuprofen Allergy VOMITING Verified 10/25/15 10:46 chocolate Allergy RASH Uncoded 08/13/16 12:00 Review of Systems ROS Statement: Except As Marked, All Systems Reviewed And Found Negative Skin: Positive for: Other (Abscess) Physical Exam - Reviewed Nursing Documentation Reviewed: Yes Vital Signs Reviewed: Yes - Physical Exam Appears: Positive for: Well, Non-toxic, No Acute Distress Head Exam: Positive for: ATRAUMATIC, NORMAL INSPECTION, NORMOCEPHALIC Skin: Positive for: Normal Color, Rash (R armpit fluctuant abscess measuring approx 2x2cm, no surrounding erythema) Eye Exam: Positive for: EOMI, Normal appearance, PERRL ENT: Positive for: Normal ENT Inspection Neck: Positive for: Normal, Painless ROM Gastrointestinal/Abdominal: Positive for: Normal Exam, Soft Extremity: Positive for: Other Neurologic/Psych: Positive for: Alert, Oriented - ECG O2 Sat by Pulse Oximetry: 100 Medical Decision Making Medical Decision Making: A/P: Hx of HIV p/w abscess -no erythema surrounding area -patient tolerated I&D well -vitals stable, patient well appearing, afebrile -will give clinda given HIV+ status -advised to f/u w/ PMD in [place] in 2-3 days for wound check or return to ER -return precautions discussed -patient asking for pain medication, 5 pills of tramadol given, narcotic safety information given to patient Procedures - Incision and Drainage Blade Size: 11 I & D Procedure: betadine prep Progress: R axilla abscess I&D Lidocaine 2% injected Scalpel used to make incision, 5cc's of pus drained Wound culture sent Disposition - Clinical Impression Clinical Impression: Abscess - Patient ED Disposition Is Patient to be Admitted: No - Disposition Referrals: Margarita Marx [facility] [Outside] Disposition: Routine/Home Disposition Time: 03:37 Condition: IMPROVED Prescriptions: Clindamycin [Cleocin] 300 mg PO TID 10 Days cap traMADol [Ultram] 50 mg PO STAT #5 tab Instructions: Skin Abscess, Abscess Incision and Drainage (DC), Opioids for Short-Term Treatment of Pain, Taking Narcotics Safely Forms: Margarita Marx (Finnish), [facility] ED School/Work Excuse
[2017-10-09 03:38] VITALS: BP 122/78; PULSE 86; RESP 18; TEMP 98.4
== END 2017-10-09 03:37 | disposition home or self-care (01) ==
LOC: H.ER 02:04
DX: L02.411 Cutaneous abscess of right axilla (principal)

== ENCOUNTER 2017-11-08 10:50 | Emergency (ER) | payer MEDICAID ==
[2017-11-08 10:53] VITALS: BMI 43.9
[2017-11-08 10:56] VITALS: TEMP 97.7
--- NOTE | 2017-11-08 11:10 | ED PDOC ---
HPI: Skin/Bite Injury Time Seen by Provider: 11/08/17 10:56 Chief Complaint (Nursing): Abnormal Skin Integrity History Per: Patient History/Exam Limitations: no limitations Current Symptoms Are (Timing): Still Present Additional Complaint(s): 27 yo F with pmh of HIV, on anti-retroviral therapy, presents c/o abscess to the L buttock and L axilla present for the past few days. Reports no fever, chills, drainage, surrounding redness/swelling. Does not know her viral count or CD4 count. Reports no other complaints. Past Medical History Vital Signs: Last Vital Signs Temp 97.7 F 11/08/17 10:54 Pulse 86 11/08/17 10:54 Resp 20 11/08/17 10:54 BP 118/78 11/08/17 10:54 Pulse Ox 97 11/08/17 10:54 - Medical History PMH: Asthma, Bipolar Disorder, Depression, HIV Denies: Diabetes, Hepatitis, HTN, Chronic Kidney Disease, Seizures, Sexually Transmitted Disease - Family History Family History: States: Unknown Family Hx - Immunization History Hx Tetanus Toxoid Vaccination: Yes (UTD according to patient) Hx Influenza Vaccination: Yes Hx Pneumococcal Vaccination: Yes - Home Medications Home Medications: Ambulatory Orders Medication Instructions Recorded DiphenhydrAMINE [Benadryl] 25 mg PO HS 09/12/17 Clindamycin [Cleocin] 300 mg PO TID 10 Days cap 10/09/17 traMADol [Ultram] 50 mg PO STAT #5 tab 10/09/17 Cephalexin [Keflex] 500 mg PO Q6 #28 capsule 11/08/17 Sulfamethoxazole/Trimethoprim 2 tab PO BID #28 tab 11/08/17 [Bactrim DS 800 mg-160 mg] - Allergies Allergies/Adverse Reactions: Allergies Allergy/AdvReac Type Severity Reaction Status Date / Time chocolate flavor Allergy ANAPHYLAXIS Verified 10/25/15 10:46 ibuprofen Allergy VOMITING Verified 10/25/15 10:46 chocolate Allergy RASH Uncoded 08/13/16 12:00 Review of Systems Constitutional: Negative for: Fever, Weakness, Malaise Musculoskeletal: Negative for: Neck Pain, Back Pain Skin: Positive for: Other (abscess). Negative for: Rash, Lesions Physical Exam - Reviewed Vital Signs Reviewed: Yes - Physical Exam Appears: Positive for: Well, Non-toxic, No Acute Distress Skin: Positive for: Normal Color, Warm, Dry (+open non-draining indurated not fluctuant abscess ~3x3 cm in size to the L buttock, +small 2x1 cm erythematous indurated tender abscess that is not fluctuant to the L axilla with no surrounding cellulitis) Extremity: Positive for: Normal ROM. Negative for: Tenderness, Deformity, Swelling Lymphatic: Negative for: Axilla Node Tenderness, Inguinal Node Tenderness Neurologic/Psych: Positive for: Alert, bow tacker II-XII, Oriented (x3). Negative for : Motor/Sensory Deficits - ECG O2 Sat by Pulse Oximetry: 97 Medical Decision Making Medical Decision Making: Diagnosis of abscess discussed with the patient. Advised to apply warm compresses. Patient instructed to follow-up with pmd or referral provided in 1-2 days without fail. Advised to take medication as prescribed. Return to the emergency room at any time for any new or worsening symptoms. Patient states she fully agrees with and understands discharge instructions. States that she agrees with the plan and disposition. Verbalized and repeated discharge instructions and plan. I have given the patient opportunity to ask any additional questions. Disposition - Clinical Impression Clinical Impression: Abscess - Patient ED Disposition Is Patient to be Admitted: No Counseled Patient/Family Regarding: Diagnosis, Need For Followup, Rx Given - Disposition Referrals: Jason Trimble DO [Medical Doctor] - Disposition: Routine/Home Disposition Time: 11:05 Condition: STABLE Additional Instructions: Thank you for letting us take care of you today. You were treated for abscess. The emergency medical care you received today was directed at your acute symptoms. If you were prescribed any medication, please fill it and take as directed. It may take several days for your symptoms to resolve. Return to the Emergency Department if your symptoms worsen, do not improve, or if you have any other problems. Please contact your doctor in 2 days for re-evaluation and follow up / or call one of the physicians/clinics you have been referred to that are listed on the Patient Visit Information form that is included in your discharge packet. Bring any paperwork you were given at discharge with you along with any medications you are taking to your follow up visit. Our treatment cannot replace ongoing medical care by a primary care provider (PCP) outside of the emergency department. Thank you for allowing the [facility] team to be part of your care today. Prescriptions: Cephalexin [Keflex] 500 mg PO Q6 #28 capsule Sulfamethoxazole/Trimethoprim [Bactrim DS 800 mg-160 mg] 2 tab PO BID #28 tab Instructions: Skin Abscess Forms: [employer] (Malay), [facility] ED School/Work Excuse - PA / RECORD SYSTEMS ANALYST / Resident Statement MD/DO has reviewed & agrees with the documentation as recorded.
[2017-11-08 11:41] VITALS: BP 122/72; PULSE 73; RESP 18; O2SAT 100
== END 2017-11-08 11:40 | disposition home or self-care (01) ==
LOC: H.ER 10:50
DX: L02.31 Cutaneous abscess of buttock (principal); F31.9 Bipolar disorder, unspecified; J45.909 Unspecified asthma, uncomplicated

== ENCOUNTER 2017-12-18 23:23 | Emergency (ER) | payer MEDICAID ==
[2017-12-18 23:23] VITALS: BMI 43.9
[2017-12-18 23:41] VITALS: RESP 18; O2SAT 99
--- NOTE | 2017-12-19 00:25 | ED PDOC ---
Lower Extremity Pain/Injury Time Seen by Provider: 12/18/17 23:43 Chief Complaint (Nursing): Lower Extremity Problem/Injury Chief Complaint (Provider): Lower Extremity Problem/Injury History Per: Patient History/Exam Limitations: no limitations Onset/Duration Of Symptoms: Hrs Current Symptoms Are (Timing): Still Present Additional Complaint(s): Viraj Jauregui is a 27 year old female with a past medical history of bipolar disorder, depression, and asthma who is presenting to the ED for evaluation of left ankle injury, s/p twisting it earlier while watching her niece. Patient complains of mild pain and swelling to the lateral aspect of left ankle. She denies any knee pain, other injuries, or numbness. 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 - Family History Family History: States: Unknown Family Hx - Social History Ex-Smoker (has not smoked in the last 12 months): Yes Alcohol: None Drugs: Cannabis - Immunization History Hx Tetanus Toxoid Vaccination: Yes (UTD according to patient) Hx Influenza Vaccination: Yes Hx Pneumococcal Vaccination: Yes - Home Medications Home Medications: Ambulatory Orders Medication Instructions Recorded DiphenhydrAMINE [Benadryl] 25 mg PO HS 09/12/17 Clindamycin [Cleocin] 300 mg PO TID 10 Days cap 10/09/17 traMADol [Ultram] 50 mg PO STAT #5 tab 10/09/17 Cephalexin [Keflex] 500 mg PO Q6 #28 capsule 11/08/17 Sulfamethoxazole/Trimethoprim 2 tab PO BID #28 tab 11/08/17 [Bactrim DS 800 mg-160 mg] - Allergies Allergies/Adverse Reactions: Allergies Allergy/AdvReac Type Severity Reaction Status Date / Time chocolate flavor Allergy ANAPHYLAXIS Verified 10/25/15 10:46 ibuprofen Allergy VOMITING Verified 10/25/15 10:46 chocolate Allergy RASH Uncoded 08/13/16 12:00 Review of Systems ROS Statement: Except As Marked, All Systems Reviewed And Found Negative Musculoskeletal: Positive for: Leg Pain (left ankle pain and swelling). Negative for: Other (knee pain) Neurological: Negative for: Numbness Physical Exam - Reviewed Nursing Documentation Reviewed: Yes Vital Signs Reviewed: Yes - Physical Exam Comments: GENERAL APPEARANCE: Patient is awake, alert, oriented x 3, in no acute distress. SKIN: Warm, dry; (-) cyanosis. LOWER EXTREMITY: Ankle: (-) swelling, tenderness of the medial aspect of the ankle; (+) mild swelling and tenderness of the L lateral ankle; (+) full range of motion secondary to pain. Achilles tendon intact and nontender. Knee and foot: (-) injury. CARDIOVASCULAR: (+) distal pulse. NEUROLOGIC: (+) distal sensation. - ECG O2 Sat by Pulse Oximetry: 99 Medical Decision Making Medical Decision Making: Impression : L ankle sprain, r/o fracture Plan : - XR L ankle XR L ankle : no fracture, no dislocation, as read by PA. X-ray results discussed with the patient in great detail. Squires wrap applied. Patient refused crutches. Patient instructed to follow-up with pmd or orthopedic referral provided in 1-2 days without fail. Take over the counter tylenol for pain. Rest, ice and elevate the joint. Return to the emergency room at any time for any new or worsening symptoms. Patient states he fully agrees with and understands discharge instructions. States that he agrees with the plan and disposition. Verbalized and repeated discharge instructions and plan. I have given the patient opportunity to ask any additional questions. Patient seen and evaluated by crisis. Disposition - Clinical Impression Clinical Impression: Ankle sprain - Patient ED Disposition Is Patient to be Admitted: No Counseled Patient/Family Regarding: Studies Performed, Diagnosis, Need For Followup, Rx Given - Disposition Referrals: Gibran Casey MD [Staff Provider] - Disposition: Routine/Home Disposition Time: 00:15 Condition: STABLE Additional Instructions: Thank you for letting us take care of you today. You were treated for ankle sprain. The emergency medical care you received today was directed at your acute symptoms. rest, ice and elevate your ankle. Take over the counter tylenol for pain. It may take several days for your symptoms to resolve. Return to the Emergency Department if your symptoms worsen, do not improve, or if you have any other problems. Please contact your doctor in 2 days for re-evaluation and follow up / or call one of the physicians/clinics you have been referred to that are listed on the Patient Visit Information form that is included in your discharge packet. Bring any paperwork you were given at discharge with you along with any medications you are taking to your follow up visit. Our treatment cannot replace ongoing medical care by a primary care provider (PCP) outside of the emergency department. Thank you for allowing the [facility] team to be part of your care today. If you had an X-Ray : A Radiologist will review the ED reading if any change in treatment is needed we will contact you. Instructions: Ankle Sprain (DC) Forms: [employer] ([employer] (Yoruba), [facility] ED School/Work Excuse - PA / MANUFACTURING DESIGN ENGINEER / Resident Statement MD/DO has reviewed & agrees with the documentation as recorded.
[2017-12-19 01:57] VITALS: BP 114/76; PULSE 80; TEMP 98
--- NOTE | 2017-12-19 08:05 | RAD ---
PROCEDURE: Left Ankle Radiographs. HISTORY: pain COMPARISON: None FINDINGS: BONES: No acute fracture or destructive bony lesion identified. JOINTS: Normal. No osteoarthritis. Ankle mortise maintained. Talar dome intact SOFT TISSUES: Normal. OTHER FINDINGS: None. IMPRESSION: Unremarkable left ankle radiographs.
== END 2017-12-19 01:20 | disposition home or self-care (01) ==
LOC: H.ER 23:23
DX: S93.402A Sprain of unspecified ligament of left ankle, initial encounter (principal); X50.9XXA Other and unspecified overexertion or strenuous movements or postures, initial encounter; Y92.89 Other specified places as the place of occurrence of the external cause; F31.9 Bipolar disorder, unspecified

== ENCOUNTER 2018-04-06 05:01 | Emergency (ER) | payer MEDICAID ==
[2018-04-06 05:02] VITALS: BMI 43.9
[2018-04-06 05:31] VITALS: PULSE 88; O2SAT 98
--- NOTE | 2018-04-06 05:38 | ED PDOC ---
HPI: Skin/Bite Injury Time Seen by Provider: 04/06/18 05:30 Chief Complaint (Nursing): Abnormal Skin Integrity Chief Complaint (Provider): lump on back History Per: Patient History/Exam Limitations: no limitations Onset/Duration Of Symptoms: Days (1 week) Current Symptoms Are (Timing): Still Present Quality Of Symptoms: Painful Additional Complaint(s): 28 y/o female presents for evaluation of painful "lump" to mid back x 1 week. States area started as pimple and grew in size. Denies fever, nausea/vomiting, drainage from site. No IVDA. Past Medical History Reviewed: Historical Data, Nursing Documentation, Vital Signs Vital Signs: Last Vital Signs Temp 98.5 F 04/06/18 05:29 Pulse 88 04/06/18 05:29 Resp 16 04/06/18 05:29 BP 114/81 04/06/18 05:29 Pulse Ox 98 04/06/18 05:29 - Medical History PMH: Asthma, Bipolar Disorder, Depression, HIV Denies: Diabetes, Hepatitis, HTN, Chronic Kidney Disease, Seizures, Sexually Transmitted Disease - Family History Family History: States: Unknown Family Hx - Immunization History Hx Tetanus Toxoid Vaccination: Yes (UTD according to patient) Hx Influenza Vaccination: Yes Hx Pneumococcal Vaccination: Yes - Home Medications Home Medications: Ambulatory Orders Medication Instructions Recorded DiphenhydrAMINE [Benadryl] 25 mg PO HS 09/12/17 Clindamycin [Cleocin] 300 mg PO TID 10 Days cap 10/09/17 traMADol [Ultram] 50 mg PO STAT #5 tab 10/09/17 Cephalexin [Keflex] 500 mg PO Q6 #28 capsule 11/08/17 Sulfamethoxazole/Trimethoprim 2 tab PO BID #28 tab 11/08/17 [Bactrim DS 800 mg-160 mg] Clindamycin [Cleocin] 300 mg PO QID #39 cap 04/06/18 traMADol [Ultram] 50 mg PO Q8 PRN #10 tab 04/06/18 - Allergies Allergies/Adverse Reactions: Allergies Allergy/AdvReac Type Severity Reaction Status Date / Time chocolate flavor Allergy ANAPHYLAXIS Verified 10/25/15 10:46 ibuprofen Allergy VOMITING Verified 10/25/15 10:46 chocolate Allergy RASH Uncoded 08/13/16 12:00 Review of Systems ROS Statement: Except As Marked, All Systems Reviewed And Found Negative Skin: Positive for: Lesions Physical Exam - Reviewed Nursing Documentation Reviewed: Yes Vital Signs Reviewed: Yes - Physical Exam Appears: Positive for: Well, Non-toxic, No Acute Distress Head Exam: Positive for: ATRAUMATIC, NORMAL INSPECTION, NORMOCEPHALIC Skin: Positive for: Normal Color ENT: Positive for: Normal ENT Inspection Cardiovascular/Chest: Positive for: Regular Rate, Rhythm Respiratory: Positive for: Normal Breath Sounds Gastrointestinal/Abdominal: Positive for: Normal Exam Back: Positive for: Other (3cm firm area mid-right back with central purulent lesion. Mild surrounding erythema. + tender to palpate. No fluctuance, drainage noted) Neurologic/Psych: Positive for: Alert, Oriented (x3) - ECG O2 Sat by Pulse Oximetry: 98 - Progress ED Course And Treament: Patient educated on findings, discharged with rx Clindamycin, Tramadol (doses g iven in ED) Advised warm compresses 3-5x daily Follow up within 48 hours for re-eval Area marked with pen, advised to return if spreading redness/swelling or other concerning symptoms Disposition - Clinical Impression Clinical Impression: anjali Miller - Patient ED Disposition Is Patient to be Admitted: No Counseled Patient/Family Regarding: Diagnosis, Need For Followup, Rx Given - Disposition Disposition: Routine/Home Disposition Time: 05:41 Condition: IMPROVED Prescriptions: Clindamycin [Cleocin] 300 mg PO QID #39 cap traMADol [Ultram] 50 mg PO Q8 PRN #10 tab PRN Reason: Pain, Severe (8-10) Instructions: Paul
[2018-04-06 06:01] VITALS: BP 130/78; RESP 18; TEMP 98.9
== END 2018-04-06 05:59 | disposition home or self-care (01) ==
LOC: H.ER 05:01
DX: L02.222 Furuncle of back [any part, except buttock and flank] (principal); J45.909 Unspecified asthma, uncomplicated; Z86.59 Personal history of other mental and behavioral disorders

== ENCOUNTER 2018-05-21 10:46 | Emergency (ER) | payer MEDICAID ==
[2018-05-21 10:52] VITALS: BP 121/72; PULSE 85; RESP 20; TEMP 97; O2SAT 100; BMI 41.8
--- NOTE | 2018-05-21 11:34 | ED PDOC ---
HPI: General Adult Time Seen by Provider: 05/21/18 11:31 Chief Complaint (Nursing): Flu-like Symptoms Chief Complaint (Provider): COUGH/FEVER History Per: Patient (28 Y/O FEMALE H/O HIV NONCOMPLIANT ON MEDICATIONS HERE WITH PRODUCTIVE COUGH YELLOWISH SPUTUM. DENIES ANY FEVERS/CHILLS. ADMITS SMOKING. REQUEST WORK NOTE.) Past Medical History Reviewed: Historical Data, Nursing Documentation, Vital Signs Vital Signs: Last Vital Signs Temp 97 F L 05/21/18 10:48 Pulse 85 05/21/18 10:48 Resp 20 05/21/18 10:48 BP 121/72 05/21/18 10:48 Pulse Ox 100 05/21/18 10:48 - Medical History PMH: Asthma, Bipolar Disorder, Depression, HIV Denies: Diabetes, Hepatitis, HTN, Chronic Kidney Disease, Seizures, Sexually Transmitted Disease - Family History Family History: States: Unknown Family Hx - Social History Current smoker - smoking cessation education provided: Yes - Immunization History Hx Tetanus Toxoid Vaccination: Yes (UTD according to patient) Hx Influenza Vaccination: Yes Hx Pneumococcal Vaccination: Yes - Home Medications Home Medications: Ambulatory Orders Medication Instructions Recorded DiphenhydrAMINE [Benadryl] 25 mg PO HS 09/12/17 Clindamycin [Cleocin] 300 mg PO TID 10 Days cap 10/09/17 traMADol [Ultram] 50 mg PO STAT #5 tab 10/09/17 Cephalexin [Keflex] 500 mg PO Q6 #28 capsule 11/08/17 Sulfamethoxazole/Trimethoprim 2 tab PO BID #28 tab 11/08/17 [Bactrim DS 800 mg-160 mg] Clindamycin [Cleocin] 300 mg PO QID #39 cap 04/06/18 traMADol [Ultram] 50 mg PO Q8 PRN #10 tab 04/06/18 Albuterol HFA [Ventolin HFA 90 2 puff IH [id number] PRN #1 in 05/21/18 mcg/actuation (8 g)] Azithromycin [Zithromax] 250 mg PO DAILY #6 tab 05/21/18 - Allergies Allergies/Adverse Reactions: Allergies Allergy/AdvReac Type Severity Reaction Status Date / Time chocolate flavor Allergy ANAPHYLAXIS Verified 10/25/15 10:46 ibuprofen Allergy VOMITING Verified 10/25/15 10:46 chocolate Allergy RASH Uncoded 02/15/17 12:00 Review of Systems ROS Statement: Except As Marked, All Systems Reviewed And Found Negative Respiratory: Positive for: Cough Physical Exam - Reviewed Nursing Documentation Reviewed: Yes Vital Signs Reviewed: Yes - Physical Exam Appears: Positive for: Well, Non-toxic, No Acute Distress Head Exam: Positive for: ATRAUMATIC, NORMAL INSPECTION, NORMOCEPHALIC Skin: Positive for: Normal Color, Warm, DRY Eye Exam: Positive for: EOMI, Normal appearance, PERRL ENT: Positive for: Normal ENT Inspection Neck: Positive for: Normal, Painless ROM Cardiovascular/Chest: Positive for: Regular Rate, Rhythm Respiratory: Positive for: CNT, Normal Breath Sounds Gastrointestinal/Abdominal: Positive for: Normal Exam, Soft Back: Positive for: Normal Inspection Extremity: Positive for: Normal ROM Neurologic/Psych: Positive for: Alert, Oriented - ECG O2 Sat by Pulse Oximetry: 100 Disposition - Clinical Impression Clinical Impression: Bronchitis - Patient ED Disposition Is Patient to be Admitted: No - Disposition Disposition: Routine/Home Disposition Time: 11:33 Condition: FAIR Prescriptions: Albuterol HFA [Ventolin HFA 90 mcg/actuation (8 g)] 2 puff IH [id number] PRN #1 in PRN Reason: Cough Azithromycin [Zithromax] 250 mg PO DAILY #6 tab Instructions: Acute Bronchitis, Adult (DC) Forms: [facility] ED School/Work Excuse
== END 2018-05-21 11:54 | disposition home or self-care (01) ==
LOC: H.ER 10:46
DX: J40 Bronchitis, not specified as acute or chronic (principal); Z91.14 Patient's other noncompliance with medication regimen; F31.9 Bipolar disorder, unspecified; B20 Human immunodeficiency virus [HIV] disease

== ENCOUNTER 2018-09-24 11:00 | Emergency (ER) | payer MEDICAID ==
[2018-09-24 11:20] VITALS: BMI 50.1
[2018-09-24 11:21] VITALS: BP 126/86; PULSE 87; RESP 20; TEMP 98.5; O2SAT 99
--- NOTE | 2018-09-24 12:25 | ED PDOC ---
HPI: Psych/Substance Abuse Time Seen by Provider: 09/24/18 12:00 Chief Complaint (Nursing): Psychiatric Evaluation Chief Complaint (Provider): depression History Per: Patient History/Exam Limitations: no limitations Onset/Duration Of Symptoms: Days Current Symptoms Are (Timing): Still Present Modifying Factor(s): None Associated Symptoms: Depression. denies: Suicidal Thoughts Additional Complaint(s): 28 yo F presents stating she has been depressed for 1 month. She report she was born with HIV and feels it is unfair that she has to deal with it. She also reports her 2yo niece in the hospital recently. SHe feels like she needs to talk to someone. Pt reports she has been diagnosed with bipolar disorder and d epression in the past and was on medications but took herself off 2 years ago. She currently does not see a therapist or psychiatrist. Pt denies suicidal or homicidal ideation, visual or auditory hallucinations. Pt smokes marijuana. Denies other substance abuse. 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 - Family History Family History: States: Unknown Family Hx - Social History Current smoker - smoking cessation education provided: Yes Alcohol: None Drugs: Cannabis - Immunization History Hx Tetanus Toxoid Vaccination: Yes (UTD according to patient) Hx Influenza Vaccination: Yes Hx Pneumococcal Vaccination: Yes - Home Medications Home Medications: Ambulatory Orders Medication Instructions Recorded DiphenhydrAMINE [Benadryl] 25 mg PO HS 09/12/17 Clindamycin [Cleocin] 300 mg PO TID 10 Days cap 10/09/17 traMADol [Ultram] 50 mg PO STAT #5 tab 10/09/17 Cephalexin [Keflex] 500 mg PO Q6 #28 capsule 11/08/17 Sulfamethoxazole/Trimethoprim 2 tab PO BID #28 tab 05/13/18 [Bactrim DS 800 mg-160 mg] Clindamycin [Cleocin] 300 mg PO QID #39 cap 04/06/18 traMADol [Ultram] 50 mg PO Q8 PRN #10 tab 04/06/18 Albuterol HFA [Ventolin HFA 90 2 puff IH [id number] PRN #1 in 05/21/18 mcg/actuation (8 g)] Azithromycin [Zithromax] 250 mg PO DAILY #6 tab 05/21/18 - Allergies Allergies/Adverse Reactions: Allergies Allergy/AdvReac Type Severity Reaction Status Date / Time chocolate flavor Allergy ANAPHYLAXIS Verified 09/24/18 11:26 ibuprofen Allergy VOMITING Verified 09/24/18 11:26 chocolate Allergy RASH Uncoded 08/13/16 12:00 Review of Systems Constitutional: Negative for: Fever Cardiovascular: Negative for: Palpitations Psych: Positive for: Depression. Negative for: Suicidal ideation Physical Exam - Reviewed Nursing Documentation Reviewed: Yes - Physical Exam Comments: GENERALIZED APPEARANCE: Patient is AAO x 3, in no acute distress. pt is tearful SKIN: Warm, dry; (-) cyanosis. HEAD: (-) scalp swelling, (-) scalp tenderness. EYES: (-) conjunctival pallor, (-) scleral icterus, (-) nystagmus. ENMT: Mucous membranes moist. Airway patent: (-) stridor. NECK: (-) tenderness, (-) stiffness, (-) lymphadenopathy. CHEST AND RESPIRATORY: (-) rales, (-) rhonchi, (-) wheezes; breath sounds equalbilaterally. HEART AND CARDIOVASCULAR: (-) irregularity; (-) murmur, (-) gallop. ABDOMEN AND GI: Soft; (-) tenderness. EXTREMITIES: (-) deformity. NEURO AND PSYCH: Mental status as above, (-) apparent hallucinations or delusions. Affect: depressed, sad. director outpatient services: Pupilsreactive; (-) facial asymmetry; tongue anduvula midline. Strength: Symmetric. normal steady gait - ECG O2 Sat by Pulse Oximetry: 99 Medical Decision Making Medical Decision Makin:00 28 yo F h/o depression, bipolar disorder and HIV presents with depression x 1month --crisis eval --u preg 12:30 pt seen by crisis screener, became very emotional and anxious, she is worked up on my re eval and feels like she needs something to calm her, will give her low dose xanax and continue to monitor 12:45 pt is cleared by crisis and Dr. De La Fuente for discharge, diagnosis depression, f/u appointment 10/21 and given information for [facility] for sooner care will continue to evaluate pt after xanax 13:30 re eval pt is feeling much better and is ready to go home, she is here with a friend who is taking her home. Pt is calm cooperative, alert and oriented, pt has proper follow up scheduled discussed diagnosis, treatment, return precautions and f/u with pt who is understanding, in agreement and stable for dc Disposition - Clinical Impression Clinical Impression: Depression - Patient ED Disposition Is Patient to be Admitted: No Counseled Patient/Family Regarding: Studies Performed, Diagnosis, Need For Followup - Disposition Referrals: [facility] [Outside] Disposition: Routine/Home Disposition Time: 13:30 Condition: IMPROVED Additional Instructions: Thank you for letting us take care of you today. You were treated for depression. The emergency medical care you received today was directed at your acute symptoms. If you were prescribed any medication, please fill it and take as directed. It may take several days for your symptoms to resolve. Return to the Emergency Department if your symptoms worsen, do not improve, or if you have any other problems. Please contact your doctor in 2 days for re-evaluation and follow up / or call one of the physicians/clinics you have been referred to that are listed on the Patient Visit Information form that is included in your discharge packet. Bring any paperwork you were given at discharge with you along with any medications you are taking to your follow up visit. Our treatment cannot replace ongoing medical care by a primary care provider (PCP) outside of the emergency department. Instructions: Depression, Adult (DC) Forms: [employer] ([employer]), [facility] ED School/Work Excuse Print Language: CHINESE - POA Present On Arrival: None
== END 2018-09-24 13:46 | disposition home or self-care (01) ==
LOC: H.ER 11:00
DX: F32.9 Major depressive disorder, single episode, unspecified (principal)

== ENCOUNTER 2018-10-30 20:35 | Emergency (ER) | payer MEDICAID ==
[2018-10-30 20:35] VITALS: BMI 50.1
[2018-10-30 20:41] VITALS: BP 113/81; PULSE 85; RESP 16; TEMP 98.9; O2SAT 96
--- NOTE | 2018-10-30 20:58 | ED PDOC ---
HPI: Dental Pain/Injury Time Seen by Provider: 10/30/18 20:42 Chief Complaint (Nursing): Dental Pain Chief Complaint (Provider): dental pain History Per: Patient History/Exam Limitations: no limitations Onset/Duration Of Symptoms: Days (3x) Current Symptoms Are (Timing): Still Present Severity: Moderate Additional Complaint(s): 28 year old female with no past medical history presents to the ED for an evaluation of upper left dental pain ongoing for 3x days. Patient states that 2x days ago she had a tooth extraction (left lateral incisor), but was not prescribed antibiotics or pain medications. Patient reports taking advil yesterday with minimal relief. Patient denies having fevers, nausea, vomiting, or abdominal pain. PMD: [facility] Past Medical History Reviewed: Historical Data, Nursing Documentation, Vital Signs Vital Signs: Last Vital Signs Temp 98.9 F 10/30/18 20:39 Pulse 85 10/30/18 20:39 Resp 16 10/30/18 20:39 BP 113/81 10/30/18 20:39 Pulse Ox 96 10/30/18 20:39 CAYLA Report Viewed: Yes Primary Care Provider: MAURICE FUENTES - Medical History PMH: Asthma, Bipolar Disorder, Depression, HIV Denies: Diabetes, Hepatitis, HTN, Chronic Kidney Disease, Seizures, Sexually Transmitted Disease - Family History Family History: States: No Known Family Hx - Immunization History Hx Tetanus Toxoid Vaccination: Yes (UTD according to patient) Hx Influenza Vaccination: Yes Hx Pneumococcal Vaccination: Yes - Home Medications Home Medications: Ambulatory Orders Medication Instructions Recorded DiphenhydrAMINE [Benadryl] 25 mg PO HS 09/12/17 Clindamycin [Cleocin] 300 mg PO TID 10 Days cap 10/09/17 traMADol [Ultram] 50 mg PO STAT #5 tab 10/09/17 Cephalexin [Keflex] 500 mg PO Q6 #28 capsule 11/08/17 Sulfamethoxazole/Trimethoprim 2 tab PO BID #28 tab 11/08/17 [Bactrim DS 800 mg-160 mg] Clindamycin [Cleocin] 300 mg PO QID #39 cap 04/06/18 traMADol [Ultram] 50 mg PO Q8 PRN #10 tab 04/06/18 Albuterol HFA [Ventolin HFA 90 2 puff IH [id number] PRN #1 in 05/21/18 mcg/actuation (8 g)] Azithromycin [Zithromax] 250 mg PO DAILY #6 tab 05/21/18 Ibuprofen [Motrin Tab] 800 mg PO Q8H PRN #30 tab 10/30/18 Penicillin VK [Penicillin VK Tab] 500 mg PO Q6H #28 tab 10/30/18 - Allergies Allergies/Adverse Reactions: Allergies Allergy/AdvReac Type Severity Reaction Status Date / Time chocolate flavor Allergy ANAPHYLAXIS Verified 10/30/18 20:39 chocolate Allergy RASH Uncoded 10/30/18 20:39 Review of Systems ROS Statement: Except As Marked, All Systems Reviewed And Found Negative Constitutional: Negative for: Fever ENT: Positive for: Other (left upper dental pain) Gastrointestinal: Negative for: Nausea, Vomiting, Abdominal Pain Physical Exam - Reviewed Nursing Documentation Reviewed: Yes Vital Signs Reviewed: Yes - Physical Exam Appears: Positive for: Well, Non-toxic, No Acute Distress Head Exam: Positive for: ATRAUMATIC, NORMOCEPHALIC Skin: Positive for: Normal Color, Warm, Dry Eye Exam: Positive for: Normal appearance. Negative for: Periorbital swelling, Periorbital tenderness ENT: Positive for: Other (swelling to gingiva above tooth extraction, sutures noted to be in place.(-) facial swelling) Neurological/Psych: Positive for: Awake, Alert, Oriented (3x) - ECG O2 Sat by Pulse Oximetry: 96 (RA) Pulse Ox Interpretation: Normal Medical Decision Making Medical Decision Makin:42 Initial impression: 28 year old female with dental pain Initial plan: * upreg * motrin 800 mg PO * reevaluation Patient is medically stable, and requires no further treatment in the ED at this time. Patient will be discharged home with Rx for pen-vk. Patient originally reported having an allergy to ibuprofen. Patient states that it happened a while ago, when she had an itching reaction after taking ibuprofen. Patient reports taking advil at home yesterday, and states that she takes ibuprofen all of the time without difficulty. Patient advised to officially remove ibuprofen off of her profile. Discussed with patient in case of allergic reaction to ibuprofen to take benadryl and stop taking ibuprofen. Counseling was provided and all questions were answered regarding diagnosis and need for follow up with dentist in 2x days. Patient verbalizes understanding and agreement to discharge plan. Re turn if symptoms persist or worsen. Scribe Attestation: Documented by Briana Tavarez, acting as a scribe for Alee Mitchell APN. Provider Scribe Attestation: All medical record entries made by the Scribe were at my direction and personally dictated by me. I have reviewed the chart and agree that the record accurately reflects my personal performance of the history, physical exam, medical decision making, and the department course for this patient. I have also personally directed, reviewed, and agree with the discharge instructions and disposition. Disposition - Clinical Impression Clinical Impression: Pain, dental - Patient ED Disposition Is Patient to be Admitted: No Counseled Patient/Family Regarding: Need For Followup, Rx Given - Disposition Disposition: Routine/Home Disposition Time: 20:56 Condition: STABLE Additional Instructions: Follow-up with Dentist on Thursday. Return to ED if you develop fever, facial swelling, increase pain Prescriptions: Ibuprofen [Motrin Tab] 800 mg PO Q8H PRN #30 tab PRN Reason: Pain, Moderate (4-7) Penicillin VK [Penicillin VK Tab] 500 mg PO Q6H #28 tab Instructions: Dental Pain (DC) Forms: [facility] ED School/Work Excuse - POA Present On Arrival: None
[2018-10-30] MEDS ORDERED: E PO STA (21:15)
== END 2018-10-30 20:58 | disposition home or self-care (01) ==
LOC: H.ER 20:35
DX: K08.89 Other specified disorders of teeth and supporting structures (principal); F31.9 Bipolar disorder, unspecified; Z88.6 Allergy status to analgesic agent